=== PATIENT | male | born 1970 | race Caucasian/White ===

== ENCOUNTER 2022-04-05 17:45 | Inpatient (IN) ==
--- NOTE | 2022-04-05 18:04 | ED Triage Note ---
Date of Service April 05, 2022 History of Present Illness This patient was briefly evaluated while in triage. An abbreviated physical exam was performed. This patient is a 51-year-old Male with past medical history of PE, DM, who presents to the ED for evaluation of Left side abdominal pain, fullness of abdom en, dyspnea, and cough. Physical Exam VITALS: Vitals are noted on the nurse's note and reviewed by myself. GENERAL: This is a 51 year old obese white male, in no acute distress, nondiaphoretic, well-developed well-nourished. SKIN: No edema, rash. HEAD: Normocephalic atraumatic. NECK: No lymphadenopathy. Cervical spine is nontender. No JVD. LUNGS: No retractions or accessory muscle use. MUSCULOSKELETAL: Normal gait. NEURO: Patient was alert and oriented to person place and time. No focal neurological deficits. Initial orders for labs and / or imaging were placed and patient was placed in the waiting area until a bed is available. Please see further documentation for the full ED course.
[2022-04-05] MEDS ORDERED: ACETAMINOPHEN 500 MG TAB PO STA (18:16)
[2022-04-05] MEDS ORDERED: SODIUM CHLORIDE 0.9% 500 ML IV ONE (18:16)
--- NOTE | 2022-04-05 18:20 | Emergency Department Note ---
Impression & Plan Acute pancreatitis, Abdominal pain, Fever, Chest pain ED Provider Note NAME: RILEY GONZALEZ AGE: 51 SEX: M : 1970 ARRIVES VIA: Walk-In INFORMANT: Patient, ED PROVIDER(S): Hiro Mendez DO CHIEF COMPLAINT: Abdominal pain HPI: The patient is a 51-year-old male who presented to the emergency department for an evaluation of abdominal pain. The patient states he had abdominal pain over the course the last 2 days. He called his family doctor and had a COVID test run previously. He he recently returned from [place]. He is at a cough. He denies having any chest pain at this time. He denies having any lower extre mity swelling or pain. He notices no rashes. The patient also had a fever. He states pain is worsened with ambulation as well as coughing. He denies having any recent tick bites. The patient states has been compliant with his outpatient medications. He also has a history of diabetes as well as DVT with pulmonary embolism. He came to the emergency department because he was concerned about the possibility of a pulmonary embolism. ROS: See above HPI for pertinent positives & negatives. A total of 10 systems reviewed and were otherwise negative. PAST MEDICAL HISTORY: See Below PAST SURGICAL HISTORY: See Below FAMILY HISTORY: See Below SOCIAL HISTORY: See Below HOME MEDICATIONS: See Below ALLERGIES: See Below VITALS: See Below PHYSICAL EXAMINATION: GENERAL: Patient is awake alert in no acute distress patient is resting comfortably and showing no signs of anxiety EYES: The conjunctivae are clear. The pupils are round and reactive. EARS, NOSE, MOUTH AND THROAT: The nose is without any evidence of any deformity. Mucous membranes are moist. Tongue is midline. NECK: The neck is nontender and supple. RESPIRATORY: Normal respiratory effort is noted there is no evidence of wheezing rhonchi or rales CARDIOVASCULAR: Regular rate and rhythm noted there no murmurs rubs or gallops normal S1 normal S2. GASTROINTESTINAL: Abdomen was distended. There is diffuse tenderness to palpation but no guarding or rigidity. MUSCULOSKELETAL/EXTREMITIES: There is no evidence of gross deformity full range of motion is noted in the hips and shoulders. SKIN: There is no obvious evidence of any rash. There are no petechiae, pallor or cyanosis noted. NEUROLOGIC: Patient is awake alert and oriented x. Gait was steady. MEDICAL DECISION MAKING: The patient is a 51-year-old male who presented to the emergency department for an evaluation of abdominal pain. The patient was found have a fever. He was treated with IV fluids and IV pain medication. He was also treated with IV antibiotics. I discussed the patient's laboratory and radiographic studies with him. At this time his exam appears to be consistent with significant abdominal tenderness. CT appears to be consistent with pancreatitis. The patient was further treated with Protonix as well as Pepcid. I discussed his condition with the on-call [facility] Hospitalist. They have agreed to evaluate the patient in the emergency department for further management and disposition. Triage Nursing notes reviewed. Prior medical records reviewed Vital Signs: reviewed and remarkable for tachycardia and fever. Differential diagnosis: Etiologies such as appendicitis, diverticulitis, obstruction, inflammatory bowel disease, renal colic, PUD, biliary pathology, pancreatitis, mesenteric ischemia, aortic pathology, infections, genitourinary, UTI, perforated viscus, as well as others were entertained. ER treatment provided: See below Diagnostics interpreted by me: ECG: EKG was obtained in the emergency department. My interpretation is sinus tachycardia 124 bpm. PVCs were noted. Nonspecific ST segment abnormalities were noted diffusely. This was compared to a tracing from February 14, 2020. Increased rate otherwise no changes Cardiac Monitoring: An order was placed for continuous cardiac monitoring. The monitor shows a rate of 109 bpm with sinus tachycardia Laboratory studies: As stated above and show below. Imaging studies: See below Consultation(s): I discussed this case with Dr. Ashley who is on-call for the [facility] Hospitalist group. Past Med/Surg History Medical History History of diabetes mellitus, type II History of DVT (deep vein thrombosis) History of DVT (deep vein thrombosis) History of gastroesophageal reflux (GERD) History of hyperlipidemia History of neuropathy History of pulmonary embolism History of pulmonary embolism CECILIO (obstructive sleep apnea) Surgical History History of ankle surgery History of tonsillectomy History of uvulopalatopharyngoplasty Family History Mother Hypertension Melanoma Father Parkinsons disease Brother Deep vein thrombosis Social History Smoking Status: Never smoker Preferred Language: Swedish Feels Safe at Home: Yes Allergies Allergies Allergy/AdvReac Type Severity Reaction Status Date / Time Penicillins Allergy Mild Unknown Unverified 04/05/22 21:21 Home Meds Home Medications Medication Instructions Recorded Confirmed atorvastatin 40 mg tablet 40 mg PO DAILY 02/14/20 04/05/22 lisinopril 20 1 tab PO DAILY 02/14/20 04/05/22 mg-hydrochlorothiazide 25 mg tablet metformin 500 mg tablet 1,000 mg PO BID 02/14/20 04/05/22 thiamine HCl (vitamin B1) 100 mg 100 mg PO DAILY 03/23/20 04/05/22 tablet warfarin 5 mg tablet 5 mg PO TU 03/23/20 04/05/22 fluticasone propionate 50 1 spray INTRANASAL DAILY PRN 03/30/20 04/05/22 mcg/actuation nasal spray,suspension (Flonase Allergy Relief) melatonin 5 mg chewable tablet 5 mg PO HS 06/23/21 04/05/22 warfarin 5 mg tablet 10 mg PO SUMOWETHFRSA 06/23/21 04/05/22 fenofibrate micronized 134 mg 134 mg PO QAM 04/05/22 04/05/22 capsule metoprolol succinate 50 mg 50 mg PO DAILY 04/05/22 04/05/22 tablet,extended release 24 hr molnupiravir 200 mg capsule (EUA) 800 mg PO BID 04/05/22 04/05/22 Results & Data (ED) Vital Signs Vital Signs - 24 hr 04/05/22 18:03 04/05/22 18:24 04/05/22 18:34 Temperature 38.2 C H Temperature Source Oral Pulse Rate 124 H 122 H Pulse Rate [Apical] 121 H Pulse Rhythm Regular Pulse Rhythm [Apical] Pulse Strength Normal Respiratory Rate 20 15 20 Respiratory Effort / Characteristics Non-Labored Spontaneous Non-Labored Respiratory Depth Normal Normal Respiratory Pattern Regular Blood Pressure 132/81 Blood Pressure [Right Arm] 141/95 H Blood Pressure Mean 98 Blood Pressure Mean [Right Arm] 110 Blood Pressure Position Sitting Blood Pressure Position [Right Arm] Lying Pulse Oximetry 95 95 96 Oxygen Delivery Method Room Air Room Air Room Air Sepsis Recent Fever Within 48 Hours Yes Sepsis New/Unexplained Change in Mental Status No Sepsis Action Taken by Nursing Physician Notified 04/05/22 19:19 04/05/22 21:00 Temperature 37.5 C Temperature Source Oral Pulse Rate Pulse Rate [Apical] 114 H 109 H Pulse Rhythm Pulse Rhythm [Apical] Regular Pulse Strength Respiratory Rate 18 20 Respiratory Effort / Characteristics Non-Labored Spontaneous Non-Labored Spontaneous Respiratory Depth Normal Normal Respiratory Pattern Regular Regular Blood Pressure Blood Pressure [Right Arm] 150/92 H 126/77 Blood Pressure Mean Blood Pressure Mean [Right Arm] 111 93 Blood Pressure Position Blood Pressure Position [Right Arm] Sitting Pulse Oximetry 93 94 Oxygen Delivery Method Room Air Room Air Sepsis Recent Fever Within 48 Hours Sepsis New/Unexplained Change in Mental Status Sepsis Action Taken by Half-Way Medications Current Medication List: was personally reviewed by me Laboratory Data Attestation: I reviewed the patient's lab results. Result diagrams: 04/05/22 18:31 04/05/22 18:31 Lab Results 04/05/22 04/05/22 04/05/22 Range/Units 18:31 18:31 19:17 WBC 13.93 H (4.8-10.8) K/ul RBC 5.52 (4.63-6.08) M/uL Hgb 16.2 (14.0-18.0) g/dl Hct 46.2 (40.1-51.0) % MCV 83.7 (80.0-100.0) fL MCH 29.3 (25.0-34.0) pg MCHC 35.1 (32.0-36.0) g/dL RDW Std Deviation 41.5 (36.4-46.3) fL RDW Coeff of Tamanna 13.7 (11.5-14.5) % Plt Count 334 (130-400) K/uL MPV 9.6 (9.4-12.4) fL Immature Gran % (Auto) 0.6 % Neut % (Auto) 77.0 % Lymph % (Auto) 14.4 % [place] % (Auto) 7.5 % Eos % (Auto) 0.1 % Baso % (Auto) 0.4 % Neut # (Auto) 10.75 H (1.4-6.5) K/uL Lymph # (Auto) 2.00 (1.2-3.4) K/uL [place] # (Auto) 1.04 H (0.24-0.82) K/uL Eos # (Auto) 0.01 (0-0.50) K/uL Baso # (Auto) 0.05 (0-0.2) K/uL Immature Gran # (Auto) 0.08 H (0.00-0.02) K/uL Sodium 133 L (136-145) mmol/L Potassium 3.2 L (3.5-5.1) mmol/L Chloride 97 L (98-107) mmol/L Carbon Dioxide 25 (21-32) mmol/L Anion Gap 11 (3-11) BUN 10 (6-23) mg/dl Creatinine 0.81 (0.6-1.4) mg/dl Est Cr Clr Drug Dosing 149.1 ml/min Est GFR ( Amer) 117.6 ml/min Est GFR (Non-Af Amer) 101.5 ml/min BUN/Creatinine Ratio 12.3 (10-20) Glucose 208 H (70-99(Fasting)) mg/dl Calcium 9.1 (8.5-10.1) mg/dl Magnesium 1.9 (1.7-2.4) mg/dl Total Bilirubin 2.1 H (0.2-1.0) mg/dl AST 18 (13-39) U/L ALT 21 (7-52) U/L Alkaline Phosphatase 55 (34-104) U/L Troponin I High Sens 5.8 (0-20) pg/ml Total Protein 7.6 (6.0-8.3) gm/dl Albumin 4.0 (3.4-5.0) gm/dl Globulin 3.6 (2.5-4.0) gm/dl Albumin/Globulin Ratio 1.1 (0.9-2) Lipase 329 H (11-82) U/L Urine Color Dark Yellow Urine Appearance Clear (Clear) Urine pH 7.0 (4.5-7.5) Ur Specific [place] 1.032 H (1.000-1.030) Urine Protein 3+ H (Negative) Urine Glucose (UA) 3+ H (Negative) Urine Ketones 1+ H (Negative) Urine Blood 2+ H (Negative) Urine Nitrite Negative (Negative) Urine Bilirubin Negative (Negative) Urine Urobilinogen Negative (Negative) Ur Leukocyte Esterase Negative (Negative) Urine WBC (Auto) 1-5 (0-5) /hpf Urine RBC (Auto) 10-30 H (0-4) /hpf U Hyaline Cast (Auto) 1-5 (0-5) /lpf U Epithel Cells (Auto) 10-20 H (0-5) /lpf Urine Bacteria (Auto) Negative (Negative) SARS-CoV-2, RNA, NAAT (NEGATIVE) 04/05/22 Range/Units 21:00 WBC (4.8-10.8) K/ul RBC (4.63-6.08) M/uL Hgb (14.0-18.0) g/dl Hct (40.1-51.0) % MCV (80.0-100.0) fL MCH (25.0-34.0) pg MCHC (32.0-36.0) g/dL RDW Std Deviation (36.4-46.3) fL RDW Coeff of Tamanna (11.5-14.5) % Plt Count (130-400) K/uL MPV (9.4-12.4) fL Immature Gran % (Auto) % Neut % (Auto) % Lymph % (Auto) % [place] % (Auto) % Eos % (Auto) % Baso % (Auto) % Neut # (Auto) (1.4-6.5) K/uL Lymph # (Auto) (1.2-3.4) K/uL [place] # (Auto) (0.24-0.82) K/uL Eos # (Auto) (0-0.50) K/uL Baso # (Auto) (0-0.2) K/uL Immature Gran # (Auto) (0.00-0.02) K/uL Sodium (136-145) mmol/L Potassium (3.5-5.1) mmol/L Chloride (98-107) mmol/L Carbon Dioxide (21-32) mmol/L Anion Gap (3-11) BUN (6-23) mg/dl Creatinine (0.6-1.4) mg/dl Est Cr Clr Drug Dosing ml/min Est GFR ( Amer) ml/min Est GFR (Non-Af Amer) ml/min BUN/Creatinine Ratio (10-20) Glucose (70-99(Fasting)) mg/dl Calcium (8.5-10.1) mg/dl Magnesium (1.7-2.4) mg/dl Total Bilirubin (0.2-1.0) mg/dl AST (13-39) U/L ALT (7-52) U/L Alkaline Phosphatase (34-104) U/L Troponin I High Sens (0-20) pg/ml Total Protein (6.0-8.3) gm/dl Albumin (3.4-5.0) gm/dl Globulin (2.5-4.0) gm/dl Albumin/Globulin Ratio (0.9-2) Lipase (11-82) U/L Urine Color Urine Appearance (Clear) Urine pH (4.5-7.5) Ur Specific [place] (1.000-1.030) Urine Protein (Negative) Urine Glucose (UA) (Negative) Urine Ketones (Negative) Urine Blood (Negative) Urine Nitrite (Negative) Urine Bilirubin (Negative) Urine Urobilinogen (Negative) Ur Leukocyte Esterase (Negative) Urine WBC (Auto) (0-5) /hpf Urine RBC (Auto) (0-4) /hpf U Hyaline Cast (Auto) (0-5) /lpf U Epithel Cells (Auto) (0-5) /lpf Urine Bacteria (Auto) (Negative) SARS-CoV-2, RNA, NAAT NEGATIVE (NEGATIVE) Administered Medications Discontinued Medications Acetaminophen (Acetaminophen 500 Mg Tab) 1,000 mg PO NOW STA Stop: 04/05/22 18:17 Last Admin: 04/05/22 18:39 Dose: 1,000 mg Documented by: [id number] Sodium Chloride (Nss) 500 mls @ 999 mls/hr IV .Q31M ONE Stop: 04/05/22 18:46 Last Infusion: 04/05/22 19:08 Dose: 0 mls/hr Documented by: [id number] Admin: 04/05/22 18:37 Dose: 999 mls/hr Documented by: [id number] Cefoxitin Sodium (Mefoxin) 2,000 mg in 60 mls @ 100 mls/hr IV NOW STA Stop: 04/05/22 20:42 Last Infusion: 04/05/22 21:34 Dose: 0 mls/hr Documented by: [id number] Admin: 04/05/22 20:58 Dose: 100 mls/hr Documented by: [id number] Sodium Chloride (Nss 1000ml) 1,000 mls @ 999 mls/hr IV .Q1H1M ONE Stop: 04/05/22 21:07 Last Admin: 04/05/22 20:59 Dose: 999 mls/hr Documented by: [id number] Pantoprazole Sodium 40 mg/ (Syringe) 10 mls @ 5 mls/min IV NOW ONE Stop: 04/05/22 20:20 Last Admin: 04/05/22 20:58 Dose: 5 mls/min Documented by: [id number] Famotidine (Pepcid 20mg Iv Push) 20 mg in 5 mls @ 2.5 mls/min IV NOW STA Stop: 04/05/22 20:20 Last Admin: 04/05/22 20:58 Dose: 2.5 mls/min Documented by: [id number] Ioversol (Optiray 320 100ml) 120 ml IV ONCE ONE Stop: 04/05/22 19:32 Last Admin: 04/05/22 19:31 Dose: 120 ml Documented by: [id number] Imaging Data Radiologist's Impression: Abdomen/Pelvis CT 04/05/22 18:03 CT OF THE ABDOMEN AND PELVIS WITH CONTRAST CLINICAL HISTORY: Left sided abdominal pain. COMPARISON STUDY: CTA of the abdomen and pelvis June 23, 2021. TECHNIQUE: Following IV administration of 120 mL of Optiray, axial images of the abdomen and pelvis were obtained from the lung bases to the proximal femurs. Images were reviewed in the axial, sagittal, and coronal planes. IV contrast was administered without complication. Automated exposure control was utilized for the study. A dose lowering technique was utilized adhering to the principles of ALARA. FINDINGS: No pneumatosis, free air or portal venous gas is present. There is hepatic steatosis. There is no biliary or pancreatic ductal dilatation. Note is made of moderate fluid centered on the pancreatic body and tail which extends into the mesentery and left anterior pararenal space. No peripancreatic fluid collection is present. There is no evidence for pancreatic necrosis. Major vasculature is patent. Spleen, adrenal glands and kidneys are unremarkable. The re is no hydronephrosis. Colon is fluid-filled. No evidence for a bowel obstruction. Sigmoid diverticulosis is noted without evidence for acute diverticulitis. Prostate is enlarged, measuring 5.3 cm in transverse dimension. Small fat-containing umbilical hernia is present. There are small bilateral fat- containing inguinal hernias. IMPRESSION: 1. Findings consistent with acute pancreatitis. Moderate peripancreatic fluid extending into the mesentery and left anterior pararenal space. No peripancreatic fluid collection. No evidence for gland necrosis. 2. Hepatic steatosis. ACT 112: Negative or not required by law. Electronically signed by: Rodrigo iNcole M.D. 04/05/2022 8:05 PM Chest CTA 04/05/22 18:04 CT ANGIOGRAPHY OF THE CHEST, PULMONARY EMBOLUS PROTOCOL CLINICAL HISTORY: Abdominal pain, shortness of breath, hx. PE COMPARISON STUDY: Chest CT June 23, 2021. TECHNIQUE: Following IV administration of 120 mL of Optiray, helical axial im ages of the chest were obtained utilizing the pulmonary embolus protocol. Maximal intensity projections and sagittal and coronal reformats were viewed on an independent 3D workstation. IV contrast was administered without complication. Automated exposure control was utilized for the study. A dose lowering technique was utilized adhering to the principles of ALARA. CT DOSE: 2744.82 mGy.cm FINDINGS: No pulmonary emboli are identified although this exam is compromised by respiratory motion. There is no thoracic aortic dissection. Size of the heart is normal. There is no pericardial effusion. Moderate coronary artery calcification is present. No consolidation to suggest pneumonia. There is no pneumothorax or pleural effusion. Abdomen and pelvis CT will be reported separately. Hepatic steatosis in findings consistent with acute pancreatitis are better depicted on that exam IMPRESSION: 1. No pulmonary emboli identified although exam mildly compromised by respiratory motion. 2. No acute process within the chest. 3. Findings consistent with acute pancreatitis, better depicted on the CT of the abdomen and pelvis which will be reported separately. ACT 112: Negative or not required by law. Electronically signed by: Rodrigo Nicole M.D. 04/05/2022 7:55 PM Discharge Plan Visit Data Chief Complaint: Abdominal Pain Stated Complaint: ABDOMINAL PAIN. COVID POSITIVE ED Provider: Hiro Mendez Discharge Problem: Acute pancreatitis, Abdominal pain, Fever, Chest pain Patient Disposition: Being Evaluated by Hospitalist Forms Stand Alone Forms: My [facility] [place] [employer] Prescriptions Prescriptions: No Action warfarin 5 mg tablet 5 mg PO TU RF: 0 thiamine HCl (vitamin B1) 100 mg tablet 100 mg PO DAILY RF: 0 atorvastatin 40 mg tablet 40 mg PO DAILY RF: 0 metformin 500 mg tablet 1,000 mg PO BID RF: 0 lisinopril-hydrochlorothiazide 20-25 mg tablet 1 tab PO DAILY RF: 0 fluticasone propionate [Flonase Allergy Relief] 50 mcg/actuation spray,susp ension 1 spray INTRANASAL DAILY PRN (Reason: allergies) RF: 0 warfarin 5 mg tablet 10 mg PO SUMOWETHFRSA RF: 0 melatonin 5 mg Tablet,Chewable 5 mg PO HS RF: 0 metoprolol succinate 50 mg tablet extended release 24 hr 50 mg PO DAILY RF: 0 fenofibrate micronized 134 mg capsule 134 mg PO QAM RF: 0 molnupiravir 200 mg capsule 800 mg PO BID RF: 0 Referrals Referrals: Iain Barrientos MD [Primary Care Provider] -
[2022-04-05 18:44] LABS: Basophils # (auto) 0.05 K/uL (0-0.2); Basophils % (auto) 0.4 %; Eosinophils # (auto) 0.01 K/uL (0-0.50); Eosinophils % (auto) 0.1 %; Hematocrit (blood only) 46.2 % (40.1-51.0); Hemoglobin 16.2 g/dl (14.0-18.0); Immature Granulocytes # (auto) 0.08 K/uL (0.00-0.02); Immature Granulocytes % (auto) 0.6 %; Lymphocytes % (auto) 14.4 %; Mean Corpuscular Hemoglobin 29.3 pg (25.0-34.0); Mean Corpuscular Hgb Conc 35.1 g/dL (32.0-36.0); Mean Corpuscular Volume 83.7 fL (80.0-100.0); Mean Platelet Volume 9.6 fL (9.4-12.4); Monocytes # (auto) 1.04 K/uL (0.24-0.82); Monocytes % (auto) 7.5 %; Neutrophils # (auto) 10.75 K/uL (1.4-6.5); Platelet Count 334 K/uL (130-400); RDW Coefficient of Variation 13.7 % (11.5-14.5); RDW Standard Deviation 41.5 fL (36.4-46.3); Red Blood Count 5.52 M/uL (4.63-6.08); White Blood Count 13.93 K/ul (4.8-10.8)
[2022-04-05 19:12] LABS: Albumin Globulin Ratio 1.1 (0.9-2); BUN Creatinine Ratio 12.3 (10-20); Bilirubin,Total 2.1 mg/dl (0.2-1.0); Calcium 9.1 mg/dl (8.5-10.1); Creatinine Clr Calc Pharmacy 149.1 ml/min; Est GFR (African American) 117.6 ml/min; Est GFR (Non-African American) 101.5 ml/min; Globulin 3.6 gm/dl (2.5-4.0); Potassium 3.2 mmol/L (3.5-5.1); Total Protein 7.6 gm/dl (6.0-8.3)
[2022-04-05 19:16] LABS: Troponin I High Sensitivity 5.8 pg/ml (0-20)
[2022-04-05] MEDS ORDERED: OPTIRAY 320 100ml IV ONE (19:31)
[2022-04-05 19:32] LABS: Appearance Urine Clear (Clear); Bacteria Urine Automated Negative (Negative); Bilirubin Urine Negative (Negative); Blood Urine 2+ (Negative); Color Urine Dark Yellow; Glucose Urine UA 3+ (Negative); Ketones Urine 1+ (Negative); Leukocyte Esterase Urine Negative (Negative); Nitrite Urine Negative (Negative); Protein Urine 3+ (Negative); Specific Gravity Urine 1.032 (1.000-1.030); Urobilinogen Urine Negative (Negative)
--- NOTE | 2022-04-05 19:57 | CT Scan Report ---
CT ANGIOGRAPHY OF THE CHEST, PULMONARY EMBOLUS PROTOCOL CLINICAL HISTORY: Abdominal pain, shortness of breath, hx. PE COMPARISON STUDY: Chest CT June 23, 2021. TECHNIQUE: Following IV administration of 120 mL of Optiray, helical axial images of the chest were o btained utilizing the pulmonary embolus protocol. Maximal intensity projections and sagittal and cor onal reformats were viewed on an independent 3D workstation. IV contrast was administered without co mplication. Automated exposure control was utilized for the study. A dose lowering technique was ut ilized adhering to the principles of ALARA. CT DOSE: 2744.82 mGy.cm FINDINGS: No pulmonary emboli are identified although this exam is compromised by respiratory motion . There is no thoracic aortic dissection. Size of the heart is normal. There is no pericardial effusi on. Moderate coronary artery calcification is present. No consolidation to suggest pneumonia. There i s no pneumothorax or pleural effusion. Abdomen and pelvis CT will be reported separately. Hepatic germán atosis in findings consistent with acute pancreatitis are better depicted on that exam IMPRESSION: 1. No pulmonary emboli identified although exam mildly compromised by respiratory motion. 2. No acute process within the chest. 3. Findings consistent with acute pancreatitis, better depicted on the CT of the abdomen and pelvis w hich will be reported separately. ACT 112: Negative or not required by law. Electronically signed by: Rodrigo Nicole M.D. 04/05/2022 7:55 PM
[2022-04-05] MEDS ORDERED: cefOXitin 2,000 MG/60 ML BAG IV STA (20:07)
[2022-04-05] MEDS ORDERED: SODIUM CHLORIDE 0.9% 1000ML 1,000 ML IV ONE (20:07)
--- NOTE | 2022-04-05 20:07 | CT Scan Report ---
CT OF THE ABDOMEN AND PELVIS WITH CONTRAST CLINICAL HISTORY: Left sided abdominal pain. COMPARISON STUDY: CTA of the abdomen and pelvis June 23, 2021. TECHNIQUE: Following IV administration of 120 mL of Optiray, axial images of the abdomen and pelvis w ere obtained from the lung bases to the proximal femurs. Images were reviewed in the axial, sagittal, and coronal planes. IV contrast was administered without complication. Automated exposure control w as utilized for the study. A dose lowering technique was utilized adhering to the principles of BETTY Gonzales. FINDINGS: No pneumatosis, free air or portal venous gas is present. There is hepatic steatosis. There is no biliary or pancreatic ductal dilatation. Note is made of moderate fluid centered on the pancre atic body and tail which extends into the mesentery and left anterior pararenal space. No peripancrea tic fluid collection is present. There is no evidence for pancreatic necrosis. Major vasculature is p atent. Spleen, adrenal glands and kidneys are unremarkable. There is no hydronephrosis. Colon is flui d-filled. No evidence for a bowel obstruction. Sigmoid diverticulosis is noted without evidence for a cute diverticulitis. Prostate is enlarged, measuring 5.3 cm in transverse dimension. Small fat-contai marcus umbilical hernia is present. There are small bilateral fat-containing inguinal hernias. IMPRESSION: 1. Findings consistent with acute pancreatitis. Moderate peripancreatic fluid extending into the mese ntery and left anterior pararenal space. No peripancreatic fluid collection. No evidence for gland ne crosis. 2. Hepatic steatosis. ACT 112: Negative or not required by law. Electronically signed by: Rodrigo Nicole M.D. 04/05/2022 8:05 PM
[2022-04-05] MEDS ORDERED: FAMOTIDINE 20MG IV PUSH 20 MG/5 ML SYR IV STA (20:19)
[2022-04-05] MEDS ORDERED: PANTOprazole 40 MG in SYRINGE 0 ML IV ONE (20:19)
[2022-04-05] MEDS ORDERED: POTASSIUM CHLORIDE CRTAB 20 MEQ TABCR PO STA (21:06)
--- NOTE | 2022-04-05 21:13 | History & Physical Report ---
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, INR supratherapeutic hypertension, stable hyperlipidemia on statin rx CECILIO sp surgery on CPAP DM2 on oral medications, suboptimal control as of recent hemoglobin A1c of 7.08 March 2021 Hypokalemia secondary to diarrhea and home diuretic Rx Medical telemetry given tachycardia N.p.o., bowel rest, IVF, analgesia Gallbladder ultrasound GI consult Re: Pancreatitis May need surgical evaluation inpatient if gallbladder ultrasound shows gallstones COVID-19 precautions (despite negative ER test) as patient still within 3 weeks of onset of symptoms Complete antiviral course Basal insulin adjusted for n.p.o. status, ISS BG goal 1 10-1 40, update hemoglobin A1c Replace potassium, hold home diuretic for now while patient n.p.o. DVT prophylaxis. Coumadin INR goal between 2 and 3 if no procedural intervention Full code Text document was generated using [employer] voice recognition software. It may contain grammatical or spelling errors. Kindly contact undersigned for clarification of any documentation item in question. History of Present Illness Chief Complaint: Abdominal pain Primary Care Provider: Iain Barrientos MD History obtained from patient and records. Medical history significant for saddle PE on Coumadin, hypertension, hyperlipidemia, BPH, migraine, CECILIO sp surgery on CPAP, GERD, DM2 on oral medications. Last confinement 2017 for saddle PE with RV strain and new diagnosis of DM2. [place] [facility] [place]. Subsequently transition to Coumadin. Patient was on vacation with his family in [place] when he noted cough symptoms about 2 weeks ago (03/24/22), some improvement with OTC meds. Not sure about COVID-19 contacts. No COVID 19 testing done in [place]. Patient received COVID-19 vaccination. Last week upon return to [place], patient tested positive on his home COVID-19 kit. Patient prescribed Molnuripivir course. Achy central abdominal pain with nausea symptoms and constipation followed by loose stools nonbloody after laxative intake even before first dose of antiviral. No fever, no chills, no chest pain, no shortness of breath. Some nausea, no emesis. Patient consulted ER for worsening symptoms. MEDICAL HISTORY: As above. 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 Allergies Allergy/AdvReac Type Severity Reaction Status Date / Time Penicillins Allergy Mild Unknown Unverified 04/05/22 21:21 Home Medications Medication Instructions Recorded Confirmed Type atorvastatin 40 mg tablet 40 mg PO DAILY 02/14/20 04/05/22 History lisinopril 20 1 tab PO DAILY 02/14/20 04/05/22 History mg-hydrochlorothiazide 25 mg tablet metformin 500 mg tablet 1,000 mg PO BID 02/14/20 04/05/22 History thiamine HCl (vitamin B1) 100 mg 100 mg PO DAILY 03/23/20 04/05/22 History tablet warfarin 5 mg tablet 5 mg PO TU 03/23/20 04/05/22 History fluticasone propionate 50 1 spray INTRANASAL DAILY PRN 03/30/20 04/05/22 History mcg/actuation nasal spray,suspension (Flonase Allergy Relief) melatonin 5 mg chewable tablet 5 mg PO HS 06/23/21 04/05/22 History [facility] 04/05/22 History fenofibrate micronized 134 mg 134 mg PO QAM 04/05/22 04/05/22 History capsule metoprolol succinate 50 mg 50 mg PO DAILY 04/05/22 04/05/22 History tablet,extended release 24 hr molnupiravir 200 mg capsule (EUA) 800 mg PO BID 04/05/22 04/05/22 History Past Med/Surg History Medical History History of diabetes mellitus, type II History of DVT (deep vein thrombosis) History of DVT (deep vein thrombosis) History of gastroesophageal reflux (GERD) History of hyperlipidemia History of neuropathy History of pulmonary embolism History of pulmonary embolism CECILIO (obstructive sleep apnea) Surgical History History of ankle surgery History of tonsillectomy History of uvulopalatopharyngoplasty Family History Mother Hypertension Melanoma Father Parkinsons disease Brother Deep vein thrombosis Social History Smoking Status: Never smoker Hx Alcohol Use: Yes Alcohol type: beer, wine and hard liquor Hx Substance Use: No Preferred Language: Macanese Communication Ability: Effective Personal Attendant Required: No Beliefs That Will Affect Care: None Current Living Situation: Spouse Other Information That Helps Us Care for You: No Feels Safe at Home: Yes Safety Concerns: Feels Safe At This Time Assistive Devices: CPAP Review of Systems Review of Systems: As per HPI, all other systems reviewed and negative Physical Exam Physical Exam: GENERAL: Comfortable, pleasant morbidly obese, no respiratory distress SKIN: Normal color, warm HEENT: [place] palpebral conjunctivae, no ptosis, dry buccal mucosa NECK : Supple, neck, no tenderness CHEST : CTA, no tenderness HEART : Tachycardic, no obvious murmurs ABDOMEN: Some distention, central abdominal tenderness EXTREMITIES : Minimal LE swelling, no LE tenderness, no other conspicuous deformities noted NEUROLOGIC : Coherent, no facial asymmetry, no other gross focality Results & Data Results & Data ([facility]) Vital Signs (Past 12 Hours) Vital Signs Temp Pulse Pulse Resp BP BP Pulse Ox 04/05/22 21:00 109 H 20 126/77 94 04/05/22 19:19 37.5 C 114 H 18 150/92 H 93 04/05/22 18:34 121 H 20 141/95 H 96 04/05/22 18:24 122 H 15 95 04/05/22 18:03 38.2 C H 124 H 20 132/81 95 Laboratory Results Laboratory Results WBC 13.93 K/ul (4.8-10.8) H 04/05/22 18:31 RBC 5.52 M/uL (4.63-6.08) 04/05/22 18:31 Hgb 16.2 g/dl (14.0-18.0) 04/05/22 18:31 Hct 46.2 % (40.1-51.0) 04/05/22 18:31 MCV 83.7 fL (80.0-100.0) 04/05/22 18:31 MCH 29.3 pg (25.0-34.0) 04/05/22 18: MCHC 35.1 g/dL (32.0-36.0) 04/05/22 18: RDW Std Deviation 41.5 fL (36.4-46.3) 04/05/22 18: RDW Coeff of Tamanna 13.7 % (11.5-14.5) 04/05/22 18: Plt Count 334 K/uL (130-400) 04/05/22 18: MPV 9.6 fL (9.4-12.4) 04/05/22 18: Immature Gran % (Auto) 0.6 % 04/05/22 18: Neut % (Auto) 77.0 % 04/05/22 18: Lymph % (Auto) 14.4 % 04/05/22 18: [place] % (Auto) 7.5 % 04/05/22 18: Eos % (Auto) 0.1 % 04/05/22 18: Baso % (Auto) 0.4 % 04/05/22 18: Neut # (Auto) 10.75 K/uL (1.4-6.5) H 04/05/22 18: Lymph # (Auto) 2.00 K/uL (1.2-3.4) 04/05/22 18: [place] # (Auto) 1.04 K/uL (0.24-0.82) H 04/05/22 18: Eos # (Auto) 0.01 K/uL (0-0.50) 04/05/22 18: Baso # (Auto) 0.05 K/uL (0-0.2) 04/05/22 18: Immature Gran # (Auto) 0.08 K/uL (0.00-0.02) H 04/05/22 18: Sodium 133 mmol/L (136-145) L 04/05/22 18: Potassium 3.2 mmol/L (3.5-5.1) L 04/05/22 18: Chloride 97 mmol/L (98-107) L 04/05/22 18: Carbon Dioxide 25 mmol/L (21-32) 04/05/22 18: Anion Gap 11 (3-11) 04/05/22 18:31 BUN 10 mg/dl (6-23) 04/05/22 18:31 Creatinine 0.81 mg/dl (0.6-1.4) 04/05/22 18:31 Est Cr Clr Drug Dosing 149.1 ml/min 04/05/22 18:31 Est GFR ( Amer) 117.6 ml/min 04/05/22 18:31 Est GFR (Non-Af Amer) 101.5 ml/min 04/05/22 18:31 BUN/Creatinine Ratio 12.3 (10-20) 04/05/22 18:31 Glucose 208 mg/dl (70-99(Fasting)) H 04/05/22 18:31 Calcium 9.1 mg/dl (8.5-10.1) 04/05/22 18: Total Bilirubin 2.1 mg/dl (0.2-1.0) H 04/05/22 18:31 AST 18 U/L (13-39) 04/05/22 18:31 ALT 21 U/L (7-52) 04/05/22 18:31 Alkaline Phosphatase 55 U/L (34-104) 04/05/22 18:31 Troponin I High Sens 5.8 pg/ml (0-20) 04/05/22 18:31 Total Protein 7.6 gm/dl (6.0-8.3) 04/05/22 18:31 Albumin 4.0 gm/dl (3.4-5.0) 04/05/22 18:31 Globulin 3.6 gm/dl (2.5-4.0) 04/05/22 18:31 Albumin/Globulin Ratio 1.1 (0.9-2) 04/05/22 18:31 Lipase 329 U/L (11-82) H 04/05/22 18:31 Urine Color Dark Yellow 04/05/22 19:17 Urine Appearance Clear (Clear) 04/05/22 19:17 Urine pH 7.0 (4.5-7.5) 04/05/22 19:17 Ur Specific [place] 1.032 (1.000-1.030) H 04/05/22 19:17 Urine Protein 3+ (Negative) H 04/05/22 19:17 Urine Glucose (UA) 3+ (Negative) H 04/05/22 19:17 Urine Ketones 1+ (Negative) H 04/05/22 19:17 Urine Blood 2+ (Negative) H 04/05/22 19:17 Urine Nitrite Negative (Negative) 04/05/22 19:17 Urine Bilirubin Negative (Negative) 04/05/22 19:17 Urine Urobilinogen Negative (Negative) 04/05/22 19:17 Ur Leukocyte Esterase Negative (Negative) 04/05/22 19:17 Urine WBC (Auto) 1-5 /hpf (0-5) 04/05/22 19:17 Urine RBC (Auto) 10-30 /hpf (0-4) H 04/05/22 19:17 U Hyaline Cast (Auto) 1-5 /lpf (0-5) 04/05/22 19:17 U Epithel Cells (Auto) 10-20 /lpf (0-5) H 04/05/22 19:17 Urine Bacteria (Auto) Negative (Negative) 04/05/22 19:17 Impressions Abdomen/Pelvis CT 04/05/22 18:03 CT OF THE ABDOMEN AND PELVIS WITH CONTRAST CLINICAL HISTORY: Left sided abdominal pain. COMPARISON STUDY: CTA of the abdomen and pelvis June 23, 2021. TECHNIQUE: Following IV administration of 120 mL of Optiray, axial images of the abdomen and pelvis were obtained from the lung bases to the proximal femurs. Images were reviewed in the axial, sagittal, and coronal planes. IV contrast was administered without complication. Automated exposure control was utilized for the study. A dose lowering technique was utilized adhering to the principles of ALARA. FINDINGS: No pneumatosis, free air or portal venous gas is present. There is hepatic steatosis. There is no biliary or pancreatic ductal dilatation. Note is made of moderate fluid centered on the pancreatic body and tail which extends into the mesentery and left anterior pararenal space. No peripancreatic fluid collection is present. There is no evidence for pancreatic necrosis. Major vasculature is patent. Spleen, adrenal glands and kidneys are unremarkable. There is no hydronephrosis. Colon is fluid-filled. No evidence for a bowel obstruction. Sigmoid diverticulosis is noted without evidence for acute diverticulitis. Prostate is enlarged, measuring 5.3 cm in transverse dimension. Small fat-containing umbilical hernia is present. There are small bilateral fat- containing inguinal hernias. IMPRESSION: 1. Findings consistent with acute pancreatitis. Moderate peripancreatic fluid extending into the mesentery and left anterior pararenal space. No peripancreatic fluid collection. No evidence for gland necrosis. 2. Hepatic steatosis. ACT 112: Negative or not required by law. Electronically signed by: Rodrigo Nicole M.D. 04/05/2022 8:05 PM Chest CTA 04/05/22 18:04 CT ANGIOGRAPHY OF THE CHEST, PULMONARY EMBOLUS PROTOCOL CLINICAL HISTORY: Abdominal pain, shortness of breath, hx. PE COMPARISON STUDY: Chest CT June 23, 2021. TECHNIQUE: Following IV administration of 120 mL of Optiray, helical axial images of the chest were obtained utilizing the pulmonary embolus protocol. Maximal intensity projections and sagittal and coronal reformats were viewed on an independent 3D workstation. IV contrast was administered without complication. Automated exposure control was utilized for the study. A dose lowering technique was utilized adhering to the principles of ALARA. CT DOSE: 2744.82 mGy.cm FINDINGS: No pulmonary emboli are identified although this exam is compromised by respiratory motion. There is no thoracic aortic dissection. Size of the heart is normal. There is no pericardial effusion. Moderate coronary artery calcification is present. No consolidation to suggest pneumonia. There is no pneumothorax or pleural effusion. Abdomen and pelvis CT will be reported separately. Hepatic steatosis in findings consistent with acute pancreatitis are better depicted on that exam IMPRESSION: 1. No pulmonary emboli identified although exam mildly compromised by respiratory motion. 2. No acute process within the chest. 3. Findings consistent with acute pancreatitis, better depicted on the CT of the abdomen and pelvis which will be reported separately. ACT 112: Negative or not required by law. Electronically signed by: Rodrigo Nicole M.D. 04/05/2022 7:55 PM Diagnostic Findings EKG as per my interpretation: Rate 125, sinus tachycardia, LAD, LAFB, T wave abnormality septal leads, PVCs (1) Acute pancreatitis Acute pancreatitis complication: unspecified Pancreatitis type: unspecified pancreatitis type Qualified Code(s): K85.90 - Acute pancreatitis without necrosis or infection, unspecified
[2022-04-05] MEDS ORDERED: LACTATED RINGER'S 1,000 ML IV ONE (21:20)
[2022-04-05 21:29] LABS: Magnesium 1.9 mg/dl (1.7-2.4)
[2022-04-05 22:22] LABS: INR 4.3 (0.9-1.1); Prothrombin Time 42.4 Seconds (9.0-12.0)
[2022-04-05] MEDS ORDERED: MAGNESIUM SULFATE / D5W 1 GM/100 ML BAG IV ONE (22:24)
[2022-04-05 22:37] LABS: Partial Thromboplastin Ratio 1.9
[2022-04-05 23:07] LABS: Partial Thromboplastin Time 51.8 Seconds (21.0-31.0)
[2022-04-06] MEDS ORDERED: FLUTICASONE PROPIONATE NA SPR 16 GM BTL PRN (01:11)
[2022-04-06] MEDS ORDERED: POTASSIUM CHLORIDE CRTAB 20 MEQ TABCR PO ONE (01:11)
[2022-04-06] MEDS: PROMETHAZINE HCL 12.5 MG in SODIUM CHLORIDE 0.9% 50 ML IV PRN ×2 (01:59→22:14)
[2022-04-06] MEDS: MoRPHine SULFATE 4 MG/ML 1 ML CARP\\VIAL IV PRN ×5 (02:00→21:59)
[2022-04-06] MEDS: LANTUS PER UNIT CHARGE SQ SCH ×2 (02:31→20:40)
[2022-04-06] MEDS ORDERED: GLUCOSE 40% GEL 15 GM TUBE PO PRN (02:47)
[2022-04-06] MEDS ORDERED: GLUCOSE 10 TAB/TUBE PO PRN (02:47)
[2022-04-06] MEDS ORDERED: DEXTROSE 50% 50 ML SYRINGE IV PRN (02:47)
[2022-04-06] MEDS ORDERED: CARBOHYDRATES FOR HYPOGLYCEMIA PO PRN (02:47)
[2022-04-06] MEDS ORDERED: GLUCAGON FOR INJ 1 MG VIAL SQ PRN (02:47)
[2022-04-06] MEDS: LACTATED RINGER'S 1,000 ML IV SCH ×4 (04:01→20:45)
[2022-04-06] MEDS: INSULIN ASPART PER UNIT SC SCH ×4 (04:07→18:40)
[2022-04-06 07:32] LABS: Estimated Average Glucose 212 mg/dl
--- NOTE | 2022-04-06 07:51 | Ultrasound Report ---
ABDOMINAL ULTRASOUND, RIGHT UPPER QUADRANT HISTORY: Generalized abdominal pain.. COMPARISON: None. FINDINGS: Pancreas: Not visualized due to the overlying bowel gas and the patient's body habitus. Liver: The liver is echogenic consistent with fatty change. 21 cm in length. Gallbladder: No gallbladder wall thickening. No gallstones. CBD: Not visualized. Right kidney: No hydronephrosis. IMPRESSION: 1. Hepatomegaly demonstrating fatty change. 2. Normal gallbladder. No gallstones. 2. The pancreas and common bile duct were not visualized. ACT 112: Negative or not required by law. Electronically signed by: Kunal Bright M.D. 04/06/2022 7:50 AM
[2022-04-06] MEDS: FENOFIBRATE NANOCRYSTALLIZED 145 MG TABLET PO SCH (08:01)
[2022-04-06] MEDS: THIAMINE HCL 100 MG TAB PO SCH (08:01)
[2022-04-06] MEDS: lisinopril 20 MG TAB PO SCH (08:01)
[2022-04-06 08:06] LABS: INR 2.9 (0.9-1.1); Prothrombin Time 28.7 Seconds (9.0-12.0)
[2022-04-06 08:11] LABS: Albumin Globulin Ratio 1.1 (0.9-2); Albumin Level 3.6 gm/dl (3.4-5.0); BUN Creatinine Ratio 13.5 (10-20); Calcium 8.4 mg/dl (8.5-10.1); Creatinine Clr Calc Pharmacy 163.9 ml/min; Est GFR (African American) 122.1 ml/min; Est GFR (Non-African American) 105.3 ml/min; Globulin 3.2 gm/dl (2.5-4.0); Potassium 3.7 mmol/L (3.5-5.1); Total Protein 6.8 gm/dl (6.0-8.3)
[2022-04-06 08:24] LABS: Hematocrit (blood only) 44.3 % (40.1-51.0); Hemoglobin 14.9 g/dl (14.0-18.0); Mean Corpuscular Hemoglobin 29.6 pg (25.0-34.0); Mean Corpuscular Hgb Conc 33.6 g/dL (32.0-36.0); Mean Corpuscular Volume 87.9 fL (80.0-100.0); Mean Platelet Volume 9.8 fL (9.4-12.4); Platelet Count 304 K/uL (130-400); RDW Coefficient of Variation 13.8 % (11.5-14.5); RDW Standard Deviation 44.2 fL (36.4-46.3); Red Blood Count 5.04 M/uL (4.63-6.08)
[2022-04-06 08:26] LABS: Basophils # (auto) 0.05 K/uL (0-0.2); Basophils % (auto) 0.3 %; Eosinophils # (auto) 0.04 K/uL (0-0.50); Eosinophils % (auto) 0.3 %; Immature Granulocytes # (auto) 0.07 K/uL (0.00-0.02); Immature Granulocytes % (auto) 0.5 %; Lymphocytes # (auto) 1.89 K/uL (1.2-3.4); Lymphocytes % (auto) 13.2 %; Monocytes # (auto) 1.21 K/uL (0.24-0.82); Monocytes % (auto) 8.5 %; Neutrophils # (auto) 11.04 K/uL (1.4-6.5); Neutrophils % (auto) 77.2 %
--- NOTE | 2022-04-06 08:30 | Gastrointestinal Consultation ---
Date of Consultation April 06, 2022 Assessment & Plan (1) Acute pancreatitis: (2) Abdominal pain: This is a 51 y/o male w/ multiple co-morbidities, admitted w/ abd pain and found to have what appears to be mild pancreatitis (biochemically and on imaging). Etiology not completely clear; had recent COVID infection; has elevated triglycerides which are risk factors. No biliary stone seen on initial imaging and he is not a regular user of ETOH. Tbili elevated at 2; dbili only minimally elevated 0.3 w/ normal LFTs. On exam abd soft, mod TTP upper abd; he is resting comfortably in bed, afebrile, VSS. - MRCP as ordered by hospitalist - If stone seen, will address based off results. If no stone, consider OP EUS once acute symptoms resolve to evaluate for occult stone, pancreatic anatomical variants or other pathology - Continue IVF, HGB has dropped 2 pts appropriately w/ hydration - Analgesia PRN - NPO - Ambulate as able - Aim to improve high triglycerides Thank you for allowing us to participate in the care of this patient. Please call with any acute changes, questions or concerns. Please see addendum below with additional recommendation from my supervising physician. Supervising Physician Co-Signing Physician Notes I saw and evaluated the patient. We were consulted for evaluation of mild abdominal discomfort and imaging findings consistent with acute pancreatitis. Of note the patient did have a history of COVID March during a trip to [place]. The patient did test negative for the viral infection upon admission. The patient reports no new changes in medications or use of supplements. Physical examination No obvious distress, no scleral icterus, mild right upper quadrant tenderness noted Impression: Patient admitted with mild pancreatitis seems to be resolving with conservative measures. Given the negative imaging studies we would recommend outpatient endoscopic ultrasound to evaluate for occult causes of pancreatitis such as Marii lithiasis or perhaps even pancreatic masses. Would recommend continued IV hydration and advancing diet once the patient is pain-free. Please call with any questions or concerns History of Present Illness Reason for Consultation: pancreatitis Requesting Physician: Dr. 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 Assoc w/ decreased appetite and loose nonbloody stools. Tested + for COVID last week; had symptoms late March. He was rx'd Molnuripivir course. COVID neg on arrival but he is on isolation precautions given recent hx. On arrival, lipase 329, tbili 2.1, normal LFTs, mild leukocytosis, HGB 16 (->14 now). CT findings c/w acute pancreatitis (no peripancreatic fluid collection or necrosis). GB US: Pancreas and CBD not seen, normal GB; no stones. MRCP has been ordered. Has h/o HLD - trigs >500 last month. No BM today. Not passing a lot of flatus. States pain is somewhat improved; notices it more with movement. Was on a trip to [place] prior to symptoms starting. Denies fever, no chills, no chest pain, cough, no shortness of breath. Some nausea, no emesis. No jaundice, dark urine, salgado stools, melena, hematochezia. Has rare ETOH; maybe a sip of beer a month. No tobacco. Denies new medicines recently. No fam hx or personal hx pancreatitis. Allergies Allergy/AdvReac Type Severity Reaction Status Date / Time Penicillins Allergy Mild Unknown Unverified 04/05/22 21:21 Home Medications Medication Instructions Recorded Confirmed Type atorvastatin 40 mg tablet 40 mg PO DAILY 02/14/20 04/05/22 History lisinopril 20 1 tab PO DAILY 02/14/20 04/05/22 History mg-hydrochlorothiazide 25 mg tablet metformin 500 mg tablet 1,000 mg PO BID 02/14/20 04/05/22 History thiamine HCl (vitamin B1) 100 mg 100 mg PO DAILY 03/23/20 04/05/22 History tablet warfarin 5 mg tablet 5 mg PO 03/23/20 04/05/22 History fluticasone propionate 50 1 spray INTRANASAL DAILY PRN 03/30/20 04/05/22 History mcg/actuation nasal spray,suspension (Flonase Allergy Relief) melatonin 5 mg chewable tablet 5 mg PO HS 06/23/21 04/05/22 History warfarin 5 mg tablet 10 mg PO SUMOWETHFRSA 06/23/21 04/05/22 History fenofibrate micronized 134 mg 134 mg PO QAM 04/05/22 04/05/22 History capsule metoprolol succinate 50 mg 50 mg PO DAILY 04/05/22 04/05/22 History tablet,extended release 24 hr molnupiravir 200 mg capsule (EUA) 800 mg PO BID 04/05/22 04/05/22 History Patient History Medical History History of diabetes mellitus, type II History of DVT (deep vein thrombosis) History of DVT (deep vein thrombosis) History of gastroesophageal reflux (GERD) History of hyperlipidemia History of neuropathy History of pulmonary embolism History of pulmonary embolism CECILIO (obstructive sleep apnea) Surgical History History of ankle surgery History of tonsillectomy History of uvulopalatopharyngoplasty Family History Mother Hypertension Melanoma Father Parkinsons disease Brother Deep vein thrombosis Social History Smoking Status: Never smoker Hx Alcohol Use: Yes Alcohol type: beer, wine and hard liquor Hx Substance Use: No Preferred Language: Cymraes Communication Ability: Effective [employer] Business Administrator Required: No Beliefs That Will Affect Care: None Current Living Situation: Spouse Other Information That Helps Us Care for You: No Feels Safe at Home: Yes Safety Concerns: Feels Safe At This Time Assistive Devices: CPAP Review of Systems Review of Systems: All systems reviewed & are unremarkable except as noted in HPI & below Physical Exam Constitutional: WD/WN, vitals as above Eyes: PERRL, conjunctivae normal, anicteric sclerae ENMT: external ear and nose normal, oropharynx normal Respiratory: normal respiratory effort, lungs clear to auscultation Cardiovascular: RRR, no murmur, no edema Gastrointestinal (Abdomen): Inspection/Auscultation: abdomen normal to inspection and normal bowel sounds; abdomen not distended Percussion/Palpation: abdomen soft; no guarding moderately TTP upper abd; more epigastric/LUQ, no rebound Skin: no rashes, warm and dry Psychiatric: A+Ox3, euthymic affect Results & Data ([facility]) Vital Signs (Past 12 Hours) Vital Signs Temp Pulse Pulse Pulse Resp BP Pulse Ox 04/06/22 07:58 36.9 C 107 H 18 129/80 91 04/06/22 07:23 106 H 04/06/22 03:53 36.9 C 99 H 20 129/81 95 04/06/22 01:14 37.5 C 108 H 16 118/78 93 04/06/22 00:56 112 H 04/05/22 22:55 106 H 14 138/81 96 04/05/22 21:00 109 H 20 126/77 94 Laboratory Results 04/06/22 04/06/22 04/06/22 Range/Units 18:31 07:12 07:12 WBC 14.30 H (4.8-10.8) K/ul RBC 5.04 (4.63-6.08) M/uL Hgb 14.9 (14.0-18.0) g/dl Hct 44.3 (40.1-51.0) % MCV 87.9 D (80.0-100.0) fL MCH 29.6 (25.0-34.0) pg MCHC 33.6 (32.0-36.0) g/dL RDW Std Deviation 44.2 (36.4-46.3) fL RDW Coeff of Tamanna 13.8 (11.5-14.5) % Plt Count 304 (130-400) K/uL MPV 9.8 (9.4-12.4) fL Immature Gran % (Auto) % Neut % (Auto) % Lymph % (Auto) % Hendricks % (Auto) % Eos % (Auto) % Baso % (Auto) % Neut # (Auto) (1.4-6.5) K/uL Lymph # (Auto) (1.2-3.4) K/uL Hendricks # (Auto) (0.24-0.82) K/uL Eos # (Auto) (0-0.50) K/uL Baso # (Auto) (0-0.2) K/uL Immature Gran # (Auto) (0.00-0.02) K/uL PT (9.0-12.0) Seconds INR (0.9-1.1) APTT (21.0-31.0) Seconds PTT Ratio Sodium 135 L (136-145) mmol/L Potassium 3.7 (3.5-5.1) mmol/L Chloride 101 (98-107) mmol/L Carbon Dioxide 26 (21-32) mmol/L Anion Gap 8 (3-11) BUN 10 (6-23) mg/dl Creatinine 0.74 (0.6-1.4) mg/dl Est Cr Clr Drug Dosing 163.9 ml/min Est GFR ( Amer) 122.1 ml/min Est GFR (Non-Af Amer) 105.3 ml/min BUN/Creatinine Ratio 13.5 (10-20) Glucose 185 H (70-99(Fasting)) mg/dl POC Glucose (70-99) mg/dl Estimat Average Glucose 212 mg/dl Hemoglobin A1c 9.0 H (4.5-5.6) % Calcium 8.4 L (8.5-10.1) mg/dl Magnesium (1.7-2.4) mg/dl Total Bilirubin 2.0 H (0.2-1.0) mg/dl AST 14 (13-39) U/L ALT 15 (7-52) U/L Alkaline Phosphatase 48 (34-104) U/L Troponin I High Sens (0-20) pg/ml Total Protein 6.8 (6.0-8.3) gm/dl Albumin 3.6 (3.4-5.0) gm/dl Globulin 3.2 (2.5-4.0) gm/dl Albumin/Globulin Ratio 1.1 (0.9-2) Triglycerides (0-150) mg/dl Lipase (11-82) U/L Procalcitonin (0-0.5) ng/ml Urine Color Urine Appearance (Clear) Urine pH (4.5-7.5) Ur Specific [place] (1.000-1.030) Urine Protein (Negative) Urine Glucose (UA) (Negative) Urine Ketones (Negative) Urine Blood (Negative) Urine Nitrite (Negative) Urine Bilirubin (Negative) Urine Urobilinogen (Negative) Ur Leukocyte Esterase (Negative) Urine WBC (Auto) (0-5) /hpf Urine RBC (Auto) (0-4) /hpf U Hyaline Cast (Auto) (0-5) /lpf U Epithel Cells (Auto) (0-5) /lpf Urine Bacteria (Auto) (Negative) SARS-CoV-2, RNA, NAAT (NEGATIVE) 04/06/22 04/06/22 04/06/22 Range/Units 07:12 05:56 01:58 WBC (4.8-10.8) K/ul RBC (4.63-6.08) M/uL Hgb (14.0-18.0) g/dl Hct (40.1-51.0) % MCV (80.0-100.0) fL MCH (25.0-34.0) pg MCHC (32.0-36.0) g/dL RDW Std Deviation (36.4-46.3) fL RDW Coeff of Tamanna (11.5-14.5) % Plt Count (130-400) K/uL MPV (9.4-12.4) fL Immature Gran % (Auto) % Neut % (Auto) % Lymph % (Auto) % Hendricks % (Auto) % Eos % (Auto) % Baso % (Auto) % Neut # (Auto) (1.4-6.5) K/uL Lymph # (Auto) (1.2-3.4) K/uL Hendricks # (Auto) (0.24-0.82) K/uL Eos # (Auto) (0-0.50) K/uL Baso # (Auto) (0-0.2) K/uL Immature Gran # (Auto) (0.00-0.02) K/uL PT 28.7 H (9.0-12.0) Seconds INR 2.9 H (0.9-1.1) APTT (21.0-31.0) Seconds PTT Ratio Sodium (136-145) mmol/L Potassium (3.5-5.1) mmol/L Chloride (98-107) mmol/L Carbon Dioxide (21-32) mmol/L Anion Gap (3-11) BUN (6-23) mg/dl Creatinine (0.6-1.4) mg/dl Est Cr Clr Drug Dosing ml/min Est GFR ( Amer) ml/min Est GFR (Non-Af Amer) ml/min BUN/Creatinine Ratio (10-20) Glucose (70-99(Fasting)) mg/dl POC Glucose 182 H 214 H (70-99) mg/dl Estimat Average Glucose mg/dl Hemoglobin A1c (4.5-5.6) % Calcium (8.5-10.1) mg/dl Magnesium (1.7-2.4) mg/dl Total Bilirubin (0.2-1.0) mg/dl AST (13-39) U/L ALT (7-52) U/L Alkaline Phosphatase (34-104) U/L Troponin I High Sens (0-20) pg/ml Total Protein (6.0-8.3) gm/dl Albumin (3.4-5.0) gm/dl Globulin (2.5-4.0) gm/dl Albumin/Globulin Ratio (0.9-2) Triglycerides (0-150) mg/dl Lipase (11-82) U/L Procalcitonin (0-0.5) ng/ml Urine Color Urine Appearance (Clear) Urine pH (4.5-7.5) Ur Specific [place] (1.000-1.030) Urine Protein (Negative) Urine Glucose (UA) (Negative) Urine Ketones (Negative) Urine Blood (Negative) Urine Nitrite (Negative) Urine Bilirubin (Negative) Urine Urobilinogen (Negative) Ur Leukocyte Esterase (Negative) Urine WBC (Auto) (0-5) /hpf Urine RBC (Auto) (0-4) /hpf U Hyaline Cast (Auto) (0-5) /lpf U Epithel Cells (Auto) (0-5) /lpf Urine Bacteria (Auto) (Negative) SARS-CoV-2, RNA, NAAT (NEGATIVE) 04/05/22 04/05/22 04/05/22 Range/Units 21:00 19:17 18:31 WBC (4.8-10.8) K/ul RBC (4.63-6.08) M/uL Hgb (14.0-18.0) g/dl Hct (40.1-51.0) % MCV (80.0-100.0) fL MCH (25.0-34.0) pg MCHC (32.0-36.0) g/dL RDW Std Deviation (36.4-46.3) fL RDW Coeff of Tamanna (11.5-14.5) % Plt Count (130-400) K/uL MPV (9.4-12.4) fL Immature Gran % (Auto) % Neut % (Auto) % Lymph % (Auto) % Hendricks % (Auto) % Eos % (Auto) % Baso % (Auto) % Neut # (Auto) (1.4-6.5) K/uL Lymph # (Auto) (1.2-3.4) K/uL Hendricks # (Auto) (0.24-0.82) K/uL Eos # (Auto) (0-0.50) K/uL Baso # (Auto) (0-0.2) K/uL Immature Gran # (Auto) (0.00-0.02) K/uL PT (9.0-12.0) Seconds INR (0.9-1.1) APTT 51.8 H* (21.0-31.0) Seconds PTT Ratio 1.9 Sodium (136-145) mmol/L Potassium (3.5-5.1) mmol/L Chloride (98-107) mmol/L Carbon Dioxide (21-32) mmol/L Anion Gap (3-11) BUN (6-23) mg/dl Creatinine (0.6-1.4) mg/dl Est Cr Clr Drug Dosing ml/min Est GFR ( Amer) ml/min Est GFR (Non-Af Amer) ml/min BUN/Creatinine Ratio (10-20) Glucose (70-99(Fasting)) mg/dl POC Glucose (70-99) mg/dl Estimat Average Glucose mg/dl Hemoglobin A1c (4.5-5.6) % Calcium (8.5-10.1) mg/dl Magnesium (1.7-2.4) mg/dl Total Bilirubin (0.2-1.0) mg/dl AST (13-39) U/L ALT (7-52) U/L Alkaline Phosphatase (34-104) U/L Troponin I High Sens (0-20) pg/ml Total Protein (6.0-8.3) gm/dl Albumin (3.4-5.0) gm/dl Globulin (2.5-4.0) gm/dl Albumin/Globulin Ratio (0.9-2) Triglycerides (0-150) mg/dl Lipase (11-82) U/L Procalcitonin (0-0.5) ng/ml Urine Color Dark Yellow Urine Appearance Clear (Clear) Urine pH 7.0 (4.5-7.5) Ur Specific [place] 1.032 H (1.000-1.030) Urine Protein 3+ H (Negative) Urine Glucose (UA) 3+ H (Negative) Urine Ketones 1+ H (Negative) Urine Blood 2+ H (Negative) Urine Nitrite Negative (Negative) Urine Bilirubin Negative (Negative) Urine Urobilinogen Negative (Negative) Ur Leukocyte Esterase Negative (Negative) Urine WBC (Auto) 1-5 (0-5) /hpf Urine RBC (Auto) 10-30 H (0-4) /hpf U Hyaline Cast (Auto) 1-5 (0-5) /lpf U Epithel Cells (Auto) 10-20 H (0-5) /lpf Urine Bacteria (Auto) Negative (Negative) SARS-CoV-2, RNA, NAAT NEGATIVE (NEGATIVE) 04/05/22 04/05/22 04/05/22 Range/Units 18:31 18:31 18:31 WBC (4.8-10.8) K/ul RBC (4.63-6.08) M/uL Hgb (14.0-18.0) g/dl Hct (40.1-51.0) % MCV (80.0-100.0) fL MCH (25.0-34.0) pg MCHC (32.0-36.0) g/dL RDW Std Deviation (36.4-46.3) fL RDW Coeff of Tamanna (11.5-14.5) % Plt Count (130-400) K/uL MPV (9.4-12.4) fL Immature Gran % (Auto) % Neut % (Auto) % Lymph % (Auto) % Hendricks % (Auto) % Eos % (Auto) % Baso % (Auto) % Neut # (Auto) (1.4-6.5) K/uL Lymph # (Auto) (1.2-3.4) K/uL Hendricks # (Auto) (0.24-0.82) K/uL Eos # (Auto) (0-0.50) K/uL Baso # (Auto) (0-0.2) K/uL Immature Gran # (Auto) (0.00-0.02) K/uL PT 42.4 H (9.0-12.0) Seconds INR 4.3 H (0.9-1.1) APTT (21.0-31.0) Seconds PTT Ratio Sodium (136-145) mmol/L Potassium (3.5-5.1) mmol/L Chloride (98-107) mmol/L Carbon Dioxide (21-32) mmol/L Anion Gap (3-11) BUN (6-23) mg/dl Creatinine (0.6-1.4) mg/dl Est Cr Clr Drug Dosing ml/min Est GFR ( Amer) ml/min Est GFR (Non-Af Amer) ml/min BUN/Creatinine Ratio (10-20) Glucose (70-99(Fasting)) mg/dl POC Glucose (70-99) mg/dl Estimat Average Glucose mg/dl Hemoglobin A1c (4.5-5.6) % Calcium (8.5-10.1) mg/dl Magnesium (1.7-2.4) mg/dl Total Bilirubin (0.2-1.0) mg/dl AST (13-39) U/L ALT (7-52) U/L Alkaline Phosphatase (34-104) U/L Troponin I High Sens (0-20) pg/ml Total Protein (6.0-8.3) gm/dl Albumin (3.4-5.0) gm/dl Globulin (2.5-4.0) gm/dl Albumin/Globulin Ratio (0.9-2) Triglycerides 505 H (0-150) mg/dl Lipase (11-82) U/L Procalcitonin 0.16 (0-0.5) ng/ml Urine Color Urine Appearance (Clear) Urine pH (4.5-7.5) Ur Specific [place] (1.000-1.030) Urine Protein (Negative) Urine Glucose (UA) (Negative) Urine Ketones (Negative) Urine Blood (Negative) Urine Nitrite (Negative) Urine Bilirubin (Negative) Urine Urobilinogen (Negative) Ur Leukocyte Esterase (Negative) Urine WBC (Auto) (0-5) /hpf Urine RBC (Auto) (0-4) /hpf U Hyaline Cast (Auto) (0-5) /lpf U Epithel Cells (Auto) (0-5) /lpf Urine Bacteria (Auto) (Negative) SARS-CoV-2, RNA, NAAT (NEGATIVE) 04/05/22 04/05/22 Range/Units 18:31 18:31 WBC 13.93 H (4.8-10.8) K/ul RBC 5.52 (4.63-6.08) M/uL Hgb 16.2 (14.0-18.0) g/dl Hct 46.2 (40.1-51.0) % MCV 83.7 (80.0-100.0) fL MCH 29.3 (25.0-34.0) pg MCHC 35.1 (32.0-36.0) g/dL RDW Std Deviation 41.5 (36.4-46.3) fL RDW Coeff of Tamanna 13.7 (11.5-14.5) % Plt Count 334 (130-400) K/uL MPV 9.6 (9.4-12.4) fL Immature Gran % (Auto) 0.6 % Neut % (Auto) 77.0 % Lymph % (Auto) 14.4 % Hendricks % (Auto) 7.5 % Eos % (Auto) 0.1 % Baso % (Auto) 0.4 % Neut # (Auto) 10.75 H (1.4-6.5) K/uL Lymph # (Auto) 2.00 (1.2-3.4) K/uL Hendricks # (Auto) 1.04 H (0.24-0.82) K/uL Eos # (Auto) 0.01 (0-0.50) K/uL Baso # (Auto) 0.05 (0-0.2) K/uL Immature Gran # (Auto) 0.08 H (0.00-0.02) K/uL PT (9.0-12.0) Seconds INR (0.9-1.1) APTT (21.0-31.0) Seconds PTT Ratio Sodium 133 L (136-145) mmol/L Potassium 3.2 L (3.5-5.1) mmol/L Chloride 97 L (98-107) mmol/L Carbon Dioxide 25 (21-32) mmol/L Anion Gap 11 (3-11) BUN 10 (6-23) mg/dl Creatinine 0.81 (0.6-1.4) mg/dl Est Cr Clr Drug Dosing 149.1 ml/min Est GFR ( Amer) 117.6 ml/min Est GFR (Non-Af Amer) 101.5 ml/min BUN/Creatinine Ratio 12.3 (10-20) Glucose 208 H (70-99(Fasting)) mg/dl POC Glucose (70-99) mg/dl Estimat Average Glucose mg/dl Hemoglobin A1c (4.5-5.6) % Calcium 9.1 (8.5-10.1) mg/dl Magnesium 1.9 (1.7-2.4) mg/dl Total Bilirubin 2.1 H (0.2-1.0) mg/dl AST 18 (13-39) U/L ALT 21 (7-52) U/L Alkaline Phosphatase 55 (34-104) U/L Troponin I High Sens 5.8 (0-20) pg/ml Total Protein 7.6 (6.0-8.3) gm/dl Albumin 4.0 (3.4-5.0) gm/dl Globulin 3.6 (2.5-4.0) gm/dl Albumin/Globulin Ratio 1.1 (0.9-2) Triglycerides (0-150) mg/dl Lipase 329 H (11-82) U/L Procalcitonin (0-0.5) ng/ml Urine Color Urine Appearance (Clear) Urine pH (4.5-7.5) Ur Specific [place] (1.000-1.030) Urine Protein (Negative) Urine Glucose (UA) (Negative) Urine Ketones (Negative) Urine Blood (Negative) Urine Nitrite (Negative) Urine Bilirubin (Negative) Urine Urobilinogen (Negative) Ur Leukocyte Esterase (Negative) Urine WBC (Auto) (0-5) /hpf Urine RBC (Auto) (0-4) /hpf U Hyaline Cast (Auto) (0-5) /lpf U Epithel Cells (Auto) (0-5) /lpf Urine Bacteria (Auto) (Negative) SARS-CoV-2, RNA, NAAT (NEGATIVE) Diagnostic Findings CTAP FINDINGS: No pneumatosis, free air or portal venous gas is present. There is hepatic steatosis. There is no biliary or pancreatic ductal dilatation. Note is made of moderate fluid centered on the pancreatic body and tail which extends into the mesentery and left anterior pararenal space. No peripancreatic fluid collection is present. There is no evidence for pancreatic necrosis. Major vasculature is patent. Spleen, adrenal glands and kidneys are unremarkable. There is no hydronephrosis. Colon is fluid-filled. No evidence for a bowel obstruction. Sigmoid diverticulosis is noted without evidence for acute diverticulitis. Prostate is enlarged, measuring 5.3 cm in transverse dimension. Small fat-containing umbilical hernia is present. There are small bilateral fat- containing inguinal hernias. IMPRESSION: 1. Findings consistent with acute pancreatitis. Moderate peripancreatic fluid extending into the mesentery and left anterior pararenal space. No peripancreatic fluid collection. No evidence for gland necrosis. 2. Hepatic steatosis. CTA chest: FINDINGS: No pulmonary emboli are identified although this exam is compromised by respiratory motion. There is no thoracic aortic dissection. Size of the heart is normal. There is no pericardial effusion. Moderate coronary artery calcification is present. No consolidation to suggest pneumonia. There is no pneumothorax or pleural effusion. Abdomen and pelvis CT will be reported separately. Hepatic steatosis in findings consistent with acute pancreatitis are better depicted on that exam IMPRESSION: 1. No pulmonary emboli identified although exam mildly compromised by respiratory motion. 2. No acute process within the chest. 3. Findings consistent with acute pancreatitis, better depicted on the CT of the abdomen and pelvis which will be reported separately. GB US: FINDINGS: Pancreas: Not visualized due to the overlying bowel gas and the patient's body habitus. Liver: The liver is echogenic consistent with fatty change. 21 cm in length. Gallbladder: No gallbladder wall thickening. No gallstones. CBD: Not visualized. Right kidney: No hydronephrosis. IMPRESSION: 1. Hepatomegaly demonstrating fatty change. 2. Normal gallbladder. No gallstones. 2. The pancreas and common bile duct were not visualized. (1) Abdominal pain Abdominal location: generalized Qualified Code(s): R10.84 - Generalized abdominal pain (2) Acute pancreatitis Acute pancreatitis complication: unspecified Pancreatitis type: unspecified pancreatitis type Qualified Code(s): K85.90 - Acute pancreatitis without necrosis or infection, unspecified
--- NOTE | 2022-04-06 13:09 | Magnetic Resonance Report ---
MR MRCP HISTORY: 51 years-old Male eval for choledocholithiasis acute fever with generalized abdominal pain. Acute pancreatitis. COMPARISON: CT abdomen pelvis 04/05/2022 TECHNIQUE: MRCP without the use of IV contrast was obtained FINDINGS: The heart is mildly enlarged. No acute process of the imaged lower chest. Degenerative changes are no osmani within the spine. Mild lumbar levoscoliosis. The study is motion degraded. There is moderate tammy pancreatic fluid which extends into the mesentery, left anterior pararenal space and left pericolic g utter. Interstitial edema of the pancreas and most pronounced in the pancreatic body and tail. There is no pancreatic ductal dilation. There is a 10 mm T2 hyperintense structure involving the pancreatic body on image 20 series 5 which appears to demonstrate connection with the adjacent pancreatic duct. This is suggestive of a probable sidebranch IPMN. Unremarkable gallbladder. No intrahepatic or extra hepatic biliary ductal dilation. No cholelithiasis or choledocholithiasis. Normal common bile duct, 3 mm. No bowel obstruction or bowel wall thickening. The liver is mildly enlarged. Bilateral perinephric st randing. Unremarkable spleen and adrenal glands. IMPRESSION: 1. Stable appearance of the acute interstitial edematous pancreatitis with moderate peripancreatic fl uid extending into the mesentery and left pericolic gutter. 2. No acute peripancreatic fluid collection identified. 3. No cholelithiasis, biliary ductal dilation or choledocholithiasis identified. ACT 112: Negative or not required by law. The above report was generated using voice recognition software. It may contain grammatical, syntax o r spelling errors. Electronically signed by: Saad Barron M.D. 04/06/2022 1:07 PM
--- NOTE | 2022-04-06 13:41 | Communication Note ---
Date of Service: April 06, 2022 The patient's MRCP was negative for evidence of cholelithiasis or choledocholithiasis. Would recommend continued use of IV hydration and slowly advance the diet as tolerated. The patient will be scheduled for outpatient endoscopic ultrasound in 6 to 8 weeks. Call with any questions or concerns during the remainder of the hospital admission.
--- NOTE | 2022-04-06 17:59 | Hospitalist Progress Note ---
Date of Service April 06, 2022 Assessment & Plan (1) Acute pancreatitis: Plan: Presented with positive SIRS criteria Patient predisposed by hypertriglyceridemia, COVID-19 illness Abdominal pain with nausea has been going on for last 3 days Lipase is minimally elevated CT scan showed acute pancreatitis Status post MRCP without any evidence of gallstones and are common bile duct stone Will start clears orally Recent COVID-19 illness improving on antiviral course (onset of symptoms 03/24/22 as per patient account) COVID-19 precautions (despite negative ER test) as patient still within 3 weeks of onset of symptoms Has significant cough without any shortness of breath Has been saturating normally on room air Full advised to finish the course of antiviral We will get definitive COVID-19 test after 9 PM tonight as per infection control hx saddle PE on Coumadin, INR supratherapeutic CTA did not show any pulmonary embolism We will continue Coumadin Hypertension, stable Remains on the lower side at 98/64 Getting cautious amount of intravenous fluid Hyperlipidemia on statin rx Morbid obesity with CECILIO sp surgery on CPAP No acute shortness of breath and/or desaturation DM2 on oral medications, suboptimal control as of recent hemoglobin A1c of 7.08 March 2021 Basal insulin adjusted for n.p.o. status, ISS BG goal 1 10-1 40, update hemoglobin A1c Monitor blood sugars Hypokalemia secondary to diarrhea and home diuretic Rx Replaced We will monitor PRP DVT prophylaxis. Coumadin INR goal between 2 and 3 if no procedural intervention Full code Admission and Anticipated Discharge Date Admission Date: April 05, 2022 Subjective 04/06/2022 The patient was seen and examined in medical telemetry unit and in the COVID room He complains to abdominal pain specially with movement with nausea and vomited early this morning Has cough without any respiratory symptoms of shortness of breath and has been saturating normally on room air Review of Systems Review of Systems: All systems reviewed and are unremarkable except as noted below Physical Exam Physical Exam: Lying on a chair without any acute shortness of breath but has abdominal discomfort Constitutional: well developed, well nourished, + ill appearing and + morbidly obese Eyes: PERRL, conjunctivae normal, anicteric sclerae ENMT: external ear and nose normal, oropharynx normal Respiratory: no respiratory distress Auscultation: + diminished lung sounds; no crackles and no wheezes Cardiovascular: Rate/Rhythm: regular rate and regular rhythm; not tachycardic Heart Sounds: normal S1 and normal S2; no murmur Extremities: + edema (Trace edema bilaterally) Gastrointestinal (Abdomen): Inspection/Auscultation: + abdomen distended and normal bowel sounds Percussion/Palpation: + abdomen tender (Mildly tender all over) and abdomen soft Musculoskeletal: No acute arthritis in any joint Neurologic: Alert, awake and oriented x3. No focal sensory or no motor deficit appreciated Psychiatric: A+Ox3, euthymic affect Lymphatic: no cervical or axillary lymphadenopathy Results & Data Results & Data ([facility]) Vital Signs (Past 12 Hours) Vital Signs Temp Pulse Pulse Resp BP Pulse Ox 04/06/22 15:38 36.5 C 102 H 17 98/64 L 91 04/06/22 15:27 104 H 04/06/22 12:00 37.4 C 112 H 18 116/72 92 04/06/22 07:58 36.9 C 107 H 18 129/80 91 04/06/22 07:23 106 H Laboratory Results Short CBC 04/05/22 04/06/22 Range/Units 18:31 07:12 WBC 13.93 H 14.30 H (4.8-10.8) K/ul Hgb 16.2 14.9 (14.0-18.0) g/dl Hct 46.2 44.3 (40.1-51.0) % Plt Count 334 304 (130-400) K/uL [facility] 04/05/22 04/06/22 18:31 07:12 Sodium 133 L 135 L Potassium 3.2 L 3.7 Chloride 97 L 101 Carbon Dioxide 25 26 BUN 10 10 Creatinine 0.81 0.74 Glucose 208 H 185 H Calcium 9.1 8.4 L Liver Function 04/05/22 04/06/22 04/06/22 Range/Units 18:31 07:12 07:12 Total Bilirubin 2.1 H 2.0 H (0.2-1.0) mg/dl Direct Bilirubin 0.3 H (0-0.2) mg/dl AST 18 14 (13-39) U/L ALT 21 15 (7-52) U/L Alkaline Phosphatase 55 48 (34-104) U/L Albumin 4.0 3.6 (3.4-5.0) gm/dl Urine 04/05/22 Range/Units 19:17 Urine Color Dark Yellow Urine Appearance Clear (Clear) Urine pH 7.0 (4.5-7.5) Ur Specific [place] 1.032 H (1.000-1.030) Urine Protein 3+ H (Negative) Urine Glucose (UA) 3+ H (Negative) Medications Administered Current Inpatient Medications Acetaminophen (Acetaminophen 325 Mg Tab) 650 mg PO Q4H PRN PRN Reason: Pain or Fever Stop: 05/06/22 01:10 Dextrose (Dextrose 50% 50 Ml Syringe) 25 - 50 ml IV UD PRN; Protocol PRN Reason: Hypoglycemia Protocol Stop: 05/06/22 02:46 Fenofibrate (Fenofibrate Nanocrystallized 145 Mg Tablet) 145 mg PO QAM [facility] Stop: 05/06/22 08:59 Last Admin: 04/06/22 08:01 Dose: 145 mg Documented by: Fluticasone Propionate (Fluticasone Propionate Na Spr 16 Gm Btl) 1 sprays NA DAILY PRN PRN Reason: allergies Stop: 05/06/22 01:10 Glucagon (Glucagon For Inj 1 Mg Vial) 1 mg SQ UD PRN; Protocol PRN Reason: Hypoglycemia Protocol Stop: 05/06/22 02:46 Glucose (Glucose 10 Tabs/Tube) 4 - 8 tabs PO UD PRN; Protocol PRN Reason: Hypoglycemia Protocol Stop: 05/06/22 02:46 Glucose (Glucose 40% Gel 15 Gm Tube) 15 - 30 gm PO UD PRN; Protocol PRN Reason: Hypoglycemia Protocol Stop: 05/06/22 02:46 Lactated Ringer's (Lr) 1,000 mls @ 200 mls/hr IV .Q5H [facility] Stop: 05/06/22 03:59 Last Admin: 04/06/22 16:06 Dose: 200 mls/hr Documented by: Promethazine HCl 12.5 mg/ (Sodium Chloride) 50.5 mls @ 202 mls/hr IV Q6H PRN PRN Reason: Nausea And Vomiting Stop: 05/06/22 01:10 Last Infusion: 04/06/22 02:14 Dose: Infused Documented by: Insulin Aspart (Insulin Aspart Per Unit) 0 units SC Q6 [facility] Stop: 05/06/22 03:14 Last Admin: 04/06/22 13:07 Dose: 2 units Documented by: Insulin Glargine (Lantus Per Unit Charge) 5 units SQ HS [facility] Stop: 05/06/22 01:10 Last Admin: 04/06/22 02:31 Dose: 5 units Documented by: Lisinopril (Lisinopril 20 Mg Tab) 20 mg PO QAM [facility] Stop: 05/06/22 08:59 Last Admin: 04/06/22 08:01 Dose: 20 mg Documented by: Melatonin (Melatonin 3 Mg Tab) 4.5 mg PO HS [facility] Stop: 05/06/22 20:59 Miscellaneous (Molnupiravir [Lagevrio]: Order Awaiting Action) 1 ea N/A QS [facility] Stop: 05/06/22 07:59 Last Admin: 04/06/22 16:14 Dose: Not Given Documented by: Miscellaneous (Carbohydrates For Hypoglycemia ) 15 - 30 gm PO UD PRN PRN Reason: Hypoglycemia Protocol Stop: 05/06/22 02:46 Morphine Sulfate (Morphine Sulfate 4 Mg/Ml 1 Ml Carp\Vial) 4 mg IV Q4H PRN PRN Reason: Pain Stop: 04/20/22 01:10 Last Admin: 04/06/22 12:56 Dose: 4 mg Documented by: Oxycodone HCl (Oxycodone Hcl Ir 5 Mg Tab (Immediate Release)) 5 - 10 mg PO QID PRN PRN Reason: Pain Stop: 04/20/22 01:10 Thiamine HCl (Thiamine Hcl 100 Mg Tab) 100 mg PO DAILY [facility] Stop: 05/06/22 08:59 Last Admin: 04/06/22 08:01 Dose: 100 mg Documented by: (1) Acute pancreatitis Acute pancreatitis complication: unspecified Pancreatitis type: unspecified pancreatitis type Qualified Code(s): K85.90 - Acute pancreatitis without necrosis or infection, unspecified
[2022-04-06] MEDS: MELATONIN 3 MG TAB PO SCH (20:45)
[2022-04-06] MEDS: ACETAMINOPHEN 325 MG TAB PO PRN (20:54)
--- NOTE | 2022-04-06 23:00 | Electrocardiogram Report ---
Test Reason : Blood Pressure : / mmHG Vent. Rate : 124 BPM Atrial Rate : 124 BPM P-R Int : 122 ms QRS Dur : 082 ms QT Int : 306 ms P-R-T Axes : 028 -12 032 degrees QTc Int : 439 ms Sinus tachycardia with Fusion complexes Otherwise normal ECG When compared with ECG of 14-FEB-2020 15:14, Fusion complex is now Present Vent. rate has increased BY 53 BPM Confirmed by Corey Natarajan ([id number]) on 04/06/2022 10:59:42 PM Referred By: REFERRED SELF Confirmed By:Corey Natarajan
[2022-04-07] MEDS: INSULIN ASPART PER UNIT SC SCH ×5 (00:21→21:32)
[2022-04-07] MEDS: LACTATED RINGER'S 1,000 ML IV SCH ×5 (00:22→20:46)
[2022-04-07] MEDS: MoRPHine SULFATE 4 MG/ML 1 ML CARP\\VIAL IV PRN (02:25)
[2022-04-07 07:09] LABS: Basophils # (auto) 0.05 K/uL (0-0.2); Basophils % (auto) 0.4 %; Eosinophils # (auto) 0.16 K/uL (0-0.50); Eosinophils % (auto) 1.2 %; Hematocrit (blood only) 38.7 % (40.1-51.0); Hemoglobin 12.8 g/dl (14.0-18.0); Immature Granulocytes # (auto) 0.13 K/uL (0.00-0.02); Lymphocytes # (auto) 1.76 K/uL (1.2-3.4); Lymphocytes % (auto) 13.3 %; Mean Corpuscular Hemoglobin 29.6 pg (25.0-34.0); Mean Corpuscular Hgb Conc 33.1 g/dL (32.0-36.0); Mean Corpuscular Volume 89.4 fL (80.0-100.0); Mean Platelet Volume 9.6 fL (9.4-12.4); Monocytes # (auto) 1.01 K/uL (0.24-0.82); Monocytes % (auto) 7.6 %; Neutrophils # (auto) 10.17 K/uL (1.4-6.5); Neutrophils % (auto) 76.5 %; Platelet Count 274 K/uL (130-400); RDW Coefficient of Variation 13.7 % (11.5-14.5); Red Blood Count 4.33 M/uL (4.63-6.08); White Blood Count 13.28 K/ul (4.8-10.8)
[2022-04-07 07:40] LABS: INR 1.8 (0.9-1.1); Prothrombin Time 18.3 Seconds (9.0-12.0)
[2022-04-07] MEDS: lisinopril 20 MG TAB PO SCH (07:48)
[2022-04-07] MEDS: FENOFIBRATE NANOCRYSTALLIZED 145 MG TABLET PO SCH (07:49)
[2022-04-07] MEDS: THIAMINE HCL 100 MG TAB PO SCH (07:49)
[2022-04-07 07:53] LABS: BUN Creatinine Ratio 14.7 (10-20); Calcium 8.2 mg/dl (8.5-10.1); Creatinine Clr Calc Pharmacy 161.7 ml/min; Est GFR (African American) 121.4 ml/min; Est GFR (Non-African American) 104.7 ml/min; Potassium 3.3 mmol/L (3.5-5.1)
[2022-04-07 08:05] LABS: Bilirubin,Total 1.5 mg/dl (0.2-1.0); Globulin 3.1 gm/dl (2.5-4.0); Phosphorus 1.5 mg/dl (2.5-4.9); Total Protein 6.1 gm/dl (6.0-8.3)
[2022-04-07] MEDS ORDERED: POTASSIUM PHOS 3 MMOL/1 ML INFUSION IV STA (08:05)
[2022-04-07] MEDS ORDERED: POTASSIUM PHOSPHATE 30 MMOL in SODIUM CHLORIDE 0.9% 500 ML IV ONE (08:30)
[2022-04-07] MEDS: ACETAMINOPHEN 325 MG TAB PO PRN ×2 (11:48→20:52)
--- NOTE | 2022-04-07 16:33 | Hospitalist Progress Note ---
Date of Service April 07, 2022 Assessment & Plan (1) Acute pancreatitis: Plan: Presented with positive SIRS criteria Patient predisposed by hypertriglyceridemia, COVID-19 illness Abdominal pain with nausea has been going on for last 3 days Lipase is minimally elevated CT scan showed acute pancreatitis Status post MRCP without any evidence of gallstones and are common bile duct stone Will start clears orally Having more pain in the lower abdomen-will not advance diet We will monitor labs tomorrow Stool for C. difficile colitis as he is having diarrhea Recent COVID-19 illness improving on antiviral course (onset of symptoms 03/24/22 as per patient account) COVID-19 precautions (despite negative ER test) as patient still within 3 weeks of onset of symptoms Has significant cough without any shortness of breath Has been saturating normally on room air Full advised to finish the course of antiviral We will get definitive COVID-19 test after 9 PM tonight as per infection control COVID test is not back yet hx saddle PE on Coumadin, INR supratherapeutic CTA did not show any pulmonary embolism We will continue Coumadin Hypertension, stable Remains on the lower side at 98/64 Getting cautious amount of intravenous fluid Hyperlipidemia on statin rx Morbid obesity with CECILIO sp surgery on CPAP No acute shortness of breath and/or desaturation DM2 on oral medications, suboptimal control as of recent hemoglobin A1c of 7.08 March 2021 Basal insulin adjusted for n.p.o. status, ISS BG goal 1 10-1 40, update hemoglobin A1c Monitor blood sugars Hypokalemia secondary to diarrhea and home diuretic Rx Replaced We will monitor PRP DVT prophylaxis. Coumadin INR goal between 2 and 3 if no procedural intervention Will restart Coumadin Full code Admission and Anticipated Discharge Date Admission Date: April 05, 2022 Subjective 04/06/2022 The patient was seen and examined in medical telemetry unit and in the COVID room He complains to abdominal pain specially with movement with nausea and vomited early this morning Has cough without any respiratory symptoms of shortness of breath and has been saturating normally on room air 04/07/2022 The patient was seen and examined in medical telemetry unit and in the COVID room He complains to have pain in the right lower quadrant and also right lower left lower quadrant He has been having diarrhea Denies any fever and or chills Denies any shortness of breath and her cough Review of Systems Review of Systems: All systems reviewed and are unremarkable except as noted below Physical Exam Physical Exam: Lying on a chair without any acute shortness of breath but has abdominal discomfort Constitutional: well developed, well nourished, + ill appearing and + morbidly obese Eyes: PERRL, conjunctivae normal, anicteric sclerae ENMT: external ear and nose normal, oropharynx normal Respiratory: no respiratory distress Auscultation: + diminished lung sounds; no crackles and no wheezes Cardiovascular: Rate/Rhythm: regular rate and regular rhythm; not tachycardic Heart Sounds: normal S1 and normal S2; no murmur Extremities: + edema (Trace edema bilaterally) Gastrointestinal (Abdomen): Inspection/Auscultation: + abdomen distended and normal bowel sounds Percussion/Palpation: + abdomen tender (Mildly tender all over. More tender in the lower quadrants) and abdomen soft Musculoskeletal: No acute arthritis in any joint Neurologic: Alert, awake and oriented x3. No focal sensory or no motor defici t appreciated Psychiatric: A+Ox3, euthymic affect Lymphatic: no cervical or axillary lymphadenopathy Results & Data Results & Data ([facility]) Vital Signs (Past 12 Hours) Vital Signs Temp Pulse Pulse Resp BP Pulse Ox 04/07/22 14:57 84 04/07/22 11:33 36.9 C 99 H 18 123/78 94 04/07/22 08:44 37.2 C 109 H 18 107/73 92 04/07/22 07:07 100 H Laboratory Results Short CBC 04/07/22 Range/Units 06:36 WBC 13.28 H (4.8-10.8) K/ul Hgb 12.8 L (14.0-18.0) g/dl Hct 38.7 L (40.1-51.0) % Plt Count 274 (130-400) K/uL BMP 04/07/22 06:36 Sodium 133 L Potassium 3.3 L Chloride 101 Carbon Dioxide 26 BUN 11 Creatinine 0.75 Glucose 161 H Calcium 8.2 L Liver Function 04/07/22 Range/Units 06:36 Total Bilirubin 1.5 H (0.2-1.0) mg/dl AST 12 L (13-39) U/L ALT 11 (7-52) U/L Alkaline Phosphatase 46 (34-104) U/L Albumin 3.0 L (3.4-5.0) gm/dl Medications Administered Current Inpatient Medications Acetaminophen (Acetaminophen 325 Mg Tab) 650 mg PO Q4H PRN PRN Reason: Pain or Fever Stop: 05/06/22 01:10 Last Admin: 04/07/22 11:48 Dose: 650 mg Documented by: Dextrose (Dextrose 50% 50 Ml Syringe) 25 - 50 ml IV UD PRN; Protocol PRN Reason: Hypoglycemia Protocol Stop: 05/06/22 02:46 Fenofibrate (Fenofibrate Nanocrystallized 145 Mg Tablet) 145 mg PO QAM [facility] Stop: 05/06/22 08:59 Last Admin: 04/07/22 07:49 Dose: 145 mg Documented by: Fluticasone Propionate (Fluticasone Propionate Na Spr 16 Gm Btl) 1 sprays NA DAILY PRN PRN Reason: allergies Stop: 05/06/22 01:10 Glucagon (Glucagon For Inj 1 Mg Vial) 1 mg SQ UD PRN; Protocol PRN Reason: Hypoglycemia Protocol Stop: 05/06/22 02:46 Glucose (Glucose 10 Tabs/Tube) 4 - 8 tabs PO UD PRN; Protocol PRN Reason: Hypoglycemia Protocol Stop: 05/06/22 02:46 Glucose (Glucose 40% Gel 15 Gm Tube) 15 - 30 gm PO UD PRN; Protocol PRN Reason: Hypoglycemia Protocol Stop: 05/06/22 02:46 Lactated Ringer's (Lr) 1,000 mls @ 200 mls/hr IV .Q5H [facility] Stop: 05/06/22 03:59 Last Admin: 04/07/22 15:21 Dose: 200 mls/hr Documented by: Promethazine HCl 12.5 mg/ (Sodium Chloride) 50.5 mls @ 202 mls/hr IV Q6H PRN PRN Reason: Nausea And Vomiting Stop: 05/06/22 01:10 Last Infusion: 04/06/22 22:29 Dose: Infused Documented by: Insulin Aspart (Insulin Aspart Per Unit) 0 units SC ACHS [facility] Stop: 05/07/22 11:29 Last Admin: 04/07/22 11:34 Dose: 2 units Documented by: Insulin Glargine (Lantus Per Unit Charge) 5 units SQ HS [facility] Stop: 05/06/22 01:10 Last Admin: 04/06/22 20:40 Dose: 5 units Documented by: Lisinopril (Lisinopril 20 Mg Tab) 20 mg PO QAM [facility] Stop: 05/06/22 08:59 Last Admin: 04/07/22 07:48 Dose: 20 mg Documented by: Melatonin (Melatonin 3 Mg Tab) 4.5 mg PO HS [facility] Stop: 05/06/22 20:59 Last Admin: 04/06/22 20:45 Dose: 4.5 mg Documented by: Miscellaneous (Molnupiravir [Lagevrio]: Order Awaiting Action) 1 ea N/A QS [facility] Stop: 05/06/22 07:59 Last Admin: 04/07/22 15:28 Dose: Not Given Documented by: Miscellaneous (Carbohydrates For Hypoglycemia ) 15 - 30 gm PO UD PRN PRN Reason: Hypoglycemia Protocol Stop: 05/06/22 02:46 Morphine Sulfate (Morphine Sulfate 4 Mg/Ml 1 Ml Carp\Vial) 4 mg IV Q4H PRN PRN Reason: Pain Stop: 04/20/22 01:10 Last Admin: 04/07/22 02:25 Dose: 4 mg Documented by: Oxycodone HCl (Oxycodone Hcl Ir 5 Mg Tab (Immediate Release)) 5 - 10 mg PO QID PRN PRN Reason: Pain Stop: 04/20/22 01:10 Thiamine HCl (Thiamine Hcl 100 Mg Tab) 100 mg PO DAILY [facility] Stop: 05/06/22 08:59 Last Admin: 04/07/22 07:49 Dose: 100 mg Documented by: (1) Acute pancreatitis Acute pancreatitis complication: unspecified Pancreatitis type: unspecified pancreatitis type Qualified Code(s): K85.90 - Acute pancreatitis without necrosis or infection, unspecified
[2022-04-07] MEDS: oxyCODONE HCL IR 5 MG TAB (IMMEDIATE RELEASE) PO PRN ×2 (16:49→22:55)
[2022-04-07] MEDS: WARFARIN SOD 10 MG TAB PO SCH (18:13)
[2022-04-07] MEDS: MELATONIN 3 MG TAB PO SCH (20:45)
[2022-04-07] MEDS: LANTUS PER UNIT CHARGE SQ SCH (21:32)
[2022-04-08] MEDS: LACTATED RINGER'S 1,000 ML IV SCH ×3 (01:48→15:41)
[2022-04-08 07:34] LABS: Basophils # (auto) 0.03 K/uL (0-0.2); Basophils % (auto) 0.3 %; Eosinophils # (auto) 0.15 K/uL (0-0.50); Eosinophils % (auto) 1.3 %; Hematocrit (blood only) 33.2 % (40.1-51.0); Hemoglobin 10.9 g/dl (14.0-18.0); Immature Granulocytes # (auto) 0.11 K/uL (0.00-0.02); Immature Granulocytes % (auto) 0.9 %; Lymphocytes # (auto) 1.63 K/uL (1.2-3.4); Lymphocytes % (auto) 13.6 %; Mean Corpuscular Hemoglobin 29.6 pg (25.0-34.0); Mean Corpuscular Hgb Conc 32.8 g/dL (32.0-36.0); Mean Corpuscular Volume 90.2 fL (80.0-100.0); Mean Platelet Volume 9.5 fL (9.4-12.4); Monocytes # (auto) 1.13 K/uL (0.24-0.82); Monocytes % (auto) 9.4 %; Neutrophils # (auto) 8.91 K/uL (1.4-6.5); Neutrophils % (auto) 74.5 %; Platelet Count 268 K/uL (130-400); RDW Coefficient of Variation 13.6 % (11.5-14.5); RDW Standard Deviation 45.2 fL (36.4-46.3); Red Blood Count 3.68 M/uL (4.63-6.08); White Blood Count 11.96 K/ul (4.8-10.8)
[2022-04-08 07:46] LABS: INR 1.8 (0.9-1.1); Prothrombin Time 18.3 Seconds (9.0-12.0)
[2022-04-08 08:10] LABS: Albumin Globulin Ratio 0.9 (0.9-2); Albumin Level 2.6 gm/dl (3.4-5.0); BUN Creatinine Ratio 11.4 (10-20); Bilirubin,Total 0.9 mg/dl (0.2-1.0); Calcium 7.9 mg/dl (8.5-10.1); Est GFR (African American) 124.9 ml/min; Est GFR (Non-African American) 107.7 ml/min; Globulin 2.9 gm/dl (2.5-4.0); Magnesium 1.9 mg/dl (1.7-2.4); Potassium 3.4 mmol/L (3.5-5.1); Total Protein 5.5 gm/dl (6.0-8.3)
[2022-04-08] MEDS ORDERED: POTASSIUM PHOS 3 MMOL/1 ML INFUSION IV STA (08:23)
[2022-04-08] MEDS ORDERED: POTASSIUM PHOSPHATE 30 MMOL in SODIUM CHLORIDE 0.9% 500 ML IV ONE (08:45)
[2022-04-08] MEDS: lisinopril 20 MG TAB PO SCH (09:25)
[2022-04-08] MEDS: THIAMINE HCL 100 MG TAB PO SCH (09:25)
[2022-04-08] MEDS: FENOFIBRATE NANOCRYSTALLIZED 145 MG TABLET PO SCH (09:25)
[2022-04-08] MEDS: INSULIN ASPART PER UNIT SC SCH ×4 (09:38→21:06)
[2022-04-08] MEDS: ACETAMINOPHEN 325 MG TAB PO PRN ×2 (13:20→20:36)
[2022-04-08] MEDS ORDERED: LOPERAMIDE HCL 2 MG CAP PO PRN (15:03)
--- NOTE | 2022-04-08 16:32 | Hospitalist Progress Note ---
Date of Service April 08, 2022 Assessment & Plan (1) Acute pancreatitis: Plan: Presented with positive SIRS criteria Patient predisposed by hypertriglyceridemia, COVID-19 illness Abdominal pain with nausea has been going on for last 3 days Lipase is minimally elevated CT scan showed acute pancreatitis Status post MRCP without any evidence of gallstones and are common bile duct stone Will start clears orally Having more pain in the lower abdomen-will not advance diet We will monitor labs tomorrow Stool for C. difficile colitis as he is having diarrhea Stool has been negative for C. difficile colitis Abdominal pain is almost gone We will advance diet as tolerated Olivas and will be given Electrolytes have been replaced Recent COVID-19 illness improving on antiviral course (onset of symptoms 03/24/22 as per patient account) COVID-19 precautions (despite negative ER test) as patient still within 3 weeks of onset of symptoms Has significant cough without any shortness of breath Has been saturating normally on room air Full advised to finish the course of antiviral We will get definitive COVID-19 test after 9 PM tonight as per infection control COVID-19 virus test is positive without any symptoms hx saddle PE on Coumadin, INR supratherapeutic CTA did not show any pulmonary embolism We will continue Coumadin INR is 1.9 Hypertension, stable Remains on the lower side at 98/64 Getting cautious amount of intravenous fluid Hyperlipidemia on statin rx Morbid obesity with CECILIO sp surgery on CPAP No acute shortness of breath and/or desaturation DM2 on oral medications, suboptimal control as of recent hemoglobin A1c of 7.08 March 2021 Basal insulin adjusted for n.p.o. status, ISS BG goal 1 10-1 40, update hemoglobin A1c Monitor blood sugars Hypokalemia secondary to diarrhea and home diuretic Rx Replaced We will monitor PRP DVT prophylaxis. Coumadin INR goal between 2 and 3 if no procedural intervention Will restart Coumadin Full code Likely discharge tomorrow Admission and Anticipated Discharge Date Admission Date: April 05, 2022 Subjective 04/06/2022 The patient was seen and examined in medical telemetry unit and in the COVID room He complains to abdominal pain specially with movement with nausea and vomited early this morning Has cough without any respiratory symptoms of shortness of breath and has been saturating normally on room air 04/07/2022 The patient was seen and examined in medical telemetry unit and in the COVID room He complains to have pain in the right lower quadrant and also right lower left lower quadrant He has been having diarrhea Denies any fever and or chills Denies any shortness of breath and her cough 04/08/2022 The patient was seen and examined in medical telemetry unit and in the [facility] room His abdominal pain is much improved but still has diarrhea C. difficile toxin has been negative He has been tolerating liquid diet and will be advanced accordingly Denies any respiratory symptoms Review of Systems Review of Systems: All systems reviewed and are unremarkable except as noted below Physical Exam Physical Exam: Lying on a chair without any acute shortness of breath but has abdominal discomfort Constitutional: well developed, well nourished, + ill appearing and + morbidly obese Eyes: PERRL, conjunctivae normal, anicteric sclerae ENMT: external ear and nose normal, oropharynx normal Respiratory: no respiratory distress Auscultation: + diminished lung sounds; no crackles and no wheezes Cardiovascular: Rate/Rhythm: regular rate and regular rhythm; not tachycardic Heart Sounds: normal S1 and normal S2; no murmur Extremities: + edema (Trace edema bilaterally) Gastrointestinal (Abdomen): Inspection/Auscultation: + abdomen distended and normal bowel sounds Percussion/Palpation: abdomen soft; abdomen nontender Neurologic: Alert, awake and oriented x3 Psychiatric: A+Ox3, euthymic affect Lymphatic: no cervical or axillary lymphadenopathy Results & Data Results & Data ([facility]) Vital Signs (Past 12 Hours) Vital Signs Temp Pulse Pulse Resp BP Pulse Ox 04/08/22 10:25 82 04/08/22 07:29 37.0 C 93 H 20 120/85 94 04/08/22 04:34 37 C 88 18 120/76 92 (1) Acute pancreatitis Acute pancreatitis complication: unspecified Pancreatitis type: unspecified pancreatitis type Qualified Code(s): K85.90 - Acute pancreatitis without necrosis or infection, unspecified
[2022-04-08] MEDS: WARFARIN SOD 10 MG TAB PO SCH (17:05)
[2022-04-08] MEDS: MELATONIN 3 MG TAB PO SCH (20:36)
[2022-04-08] MEDS: LANTUS PER UNIT CHARGE SQ SCH (21:07)
[2022-04-09] MEDS: ACETAMINOPHEN 325 MG TAB PO PRN (00:27)
[2022-04-09 06:38] LABS: INR 2.3 (0.9-1.1); Prothrombin Time 23.8 Seconds (9.0-12.0)
[2022-04-09 06:56] LABS: BUN Creatinine Ratio 10.8 (10-20); C Reactive Protein 15.32 mg/dl (0-0.5); Calcium 8.3 mg/dl (8.5-10.1); Creatinine Clr Calc Pharmacy 167.7 ml/min; Est GFR (African American) 122.1 ml/min; Est GFR (Non-African American) 105.3 ml/min; Magnesium 1.9 mg/dl (1.7-2.4); Phosphorus 3.1 mg/dl (2.5-4.9); Potassium 3.3 mmol/L (3.5-5.1)
[2022-04-09 07:13] LABS: Basophils # (auto) 0.04 K/uL (0-0.2); Basophils % (auto) 0.3 %; Eosinophils # (auto) 0.15 K/uL (0-0.50); Eosinophils % (auto) 1.2 %; Hematocrit (blood only) 34.9 % (40.1-51.0); Hemoglobin 11.3 g/dl (14.0-18.0); Immature Granulocytes % (auto) 0.8 %; Lymphocytes # (auto) 2.02 K/uL (1.2-3.4); Lymphocytes % (auto) 16.8 %; Mean Corpuscular Hemoglobin 29.5 pg (25.0-34.0); Mean Corpuscular Hgb Conc 32.4 g/dL (32.0-36.0); Mean Corpuscular Volume 91.1 fL (80.0-100.0); Mean Platelet Volume 9.6 fL (9.4-12.4); Monocytes # (auto) 1.16 K/uL (0.24-0.82); Monocytes % (auto) 9.7 %; Neutrophils # (auto) 8.54 K/uL (1.4-6.5); Neutrophils % (auto) 71.2 %; Platelet Count 326 K/uL (130-400); RDW Coefficient of Variation 13.8 % (11.5-14.5); RDW Standard Deviation 46.4 fL (36.4-46.3); Red Blood Count 3.83 M/uL (4.63-6.08); White Blood Count 12.01 K/ul (4.8-10.8)
[2022-04-09] MEDS ORDERED: POTASSIUM CHLORIDE CRTAB 20 MEQ TABCR PO STA (07:55)
[2022-04-09] MEDS: INSULIN ASPART PER UNIT SC SCH ×2 (08:20→12:05)
[2022-04-09] MEDS: lisinopril 20 MG TAB PO SCH (08:31)
[2022-04-09] MEDS: THIAMINE HCL 100 MG TAB PO SCH (08:31)
[2022-04-09] MEDS: FENOFIBRATE NANOCRYSTALLIZED 145 MG TABLET PO SCH (08:31)
--- NOTE | 2022-04-09 12:50 | Hospitalist Progress Note ---
Date of Service April 09, 2022 Assessment & Plan (1) Acute pancreatitis: Plan: Presented with positive SIRS criteria Patient predisposed by hypertriglyceridemia, COVID-19 illness Abdominal pain with nausea has been going on for last 3 days Lipase is minimally elevated CT scan showed acute pancreatitis Status post MRCP without any evidence of gallstones and are common bile duct stone Will start clears orally Having more pain in the lower abdomen-will not advance diet We will monitor labs tomorrow Stool for C. difficile colitis as he is having diarrhea Stool has been negative for C. difficile colitis Abdominal pain is almost gone Has been tolerating regular diet Diarrhea is controlled and no evidence of C. difficile colitis Has been ambulating in the room without any symptoms Recent COVID-19 illness improving on antiviral course (onset of symptoms 03/24/22 as per patient account) COVID-19 precautions (despite negative ER test) as patient still within 3 weeks of onset of symptoms Has significant cough without any shortness of breath Has been saturating normally on room air Full advised to finish the course of antiviral We will get definitive COVID-19 test after 9 PM tonight as per infection control COVID-19 virus test is positive without any symptoms Initial COVID diagnosis was on 04/01/2022 and repeat diagnosis positive on 04/06/2022 Denies any respiratory symptoms but the CRP remains elevated likely secondary to recent acute pancreatitis and COVID-related He will be discharged home this afternoon Will be quadrant timed 14 days from second of this month 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 status, ISS BG goal 1 10-1 40, update hemoglobin A1c Monitor blood sugars Hypokalemia secondary to diarrhea and home diuretic Rx Replaced We will monitor PRP DVT prophylaxis. Coumadin INR goal between 2 and 3 if no procedural intervention Will restart Coumadin Full code Will be discharged today Admission and Anticipated Discharge Date Admission Date: April 05, 2022 Subjective 04/06/2022 The patient was seen and examined in medical telemetry unit and in the COVID room He complains to abdominal pain specially with movement with nausea and vomited early this morning Has cough without any respiratory symptoms of shortness of breath and has been saturating normally on room air 04/07/2022 The patient was seen and examined in medical telemetry unit and in the COVID room He complains to have pain in the right lower quadrant and also right lower left lower quadrant He has been having diarrhea Denies any fever and or chills Denies any shortness of breath and her cough 04/08/2022 The patient was seen and examined in medical telemetry unit and in the COVID room His abdominal pain is much improved but still has diarrhea C. difficile toxin has been negative He has been tolerating liquid diet and will be advanced accordingly Denies any respiratory symptoms 04/09/2022 The patient was seen and examined in medical telemetry unit and in the COVID room He denies any more abdominal pain and has been moving bowels regularly No fever and or chills, no shortness of breath and/or palpitation Has been saturating normally on room air Review of Systems Review of Systems: All systems reviewed and are unremarkable except as noted below Respiratory: No respiratory symptoms Gastrointestinal: Abdominal pain is controlled and there is no diarrhea Physical Exam Physical Exam: Sitting on a chair without any acute distress Constitutional: well developed, well nourished and + morbidly obese; not ill appearing Eyes: PERRL, conjunctivae normal, anicteric sclerae ENMT: external ear and nose normal, oropharynx normal Respiratory: no respiratory distress Auscultation: + diminished lung sounds; no crackles and no wheezes Cardiovascular: Rate/Rhythm: regular rate and regular rhythm; not tachycardic Heart Sounds: normal S1 and normal S2; no murmur Extremities: + edema (Trace edema bilaterally) Gastrointestinal (Abdomen): Inspection/Auscultation: + abdomen distended and normal bowel sounds Percussion/Palpation: abdomen soft; abdomen nontender Musculoskeletal: No acute arthritis involving any joint Neurologic: Alert, awake and oriented x3. No focal sensory and/or motor deficit appreciated Psychiatric: A+Ox3, euthymic affect Lymphatic: no cervical or axillary lymphadenopathy Results & Data Results & Data ([facility]) Vital Signs (Past 12 Hours) Vital Signs Temp Pulse Pulse Resp BP Pulse Ox 04/09/22 07:05 70 04/09/22 03:15 36.8 C 78 20 126/84 99 04/09/22 01:45 80 Laboratory Results Short CBC 04/09/22 Range/Units 06:10 WBC 12.01 H (4.8-10.8) K/ul Hgb 11.3 L (14.0-18.0) g/dl Hct 34.9 L (40.1-51.0) % Plt Count 326 (130-400) K/uL BMP 04/09/22 06:10 Sodium 135 L Potassium 3.3 L Chloride 103 Carbon Dioxide 27 BUN 8 Creatinine 0.74 Glucose 157 H Calcium 8.3 L Medications Administered Current Inpatient Medications Acetaminophen (Acetaminophen 325 Mg Tab) 650 mg PO Q4H PRN PRN Reason: Pain or Fever Stop: 05/06/22 01:10 Last Admin: 04/09/22 00:27 Dose: 650 mg Documented by: Dextrose (Dextrose 50% 50 Ml Syringe) 25 - 50 ml IV UD PRN; Protocol PRN Reason: Hypoglycemia Protocol Stop: 05/06/22 02:46 Fenofibrate (Fenofibrate Nanocrystallized 145 Mg Tablet) 145 mg PO QAM [facility] Stop: 05/06/22 08:59 Last Admin: 04/09/22 08:31 Dose: 145 mg Documented by: Fluticasone Propionate (Fluticasone Propionate Na Spr 16 Gm Btl) 1 sprays NA DAILY PRN PRN Reason: allergies Stop: 05/06/22 01:10 Glucagon (Glucagon For Inj 1 Mg Vial) 1 mg SQ UD PRN; Protocol PRN Reason: Hypoglycemia Protocol Stop: 05/06/22 02:46 Glucose (Glucose 10 Tabs/Tube) 4 - 8 tabs PO UD PRN; Protocol PRN Reason: Hypoglycemia Protocol Stop: 05/06/22 02:46 Glucose (Glucose 40% Gel 15 Gm Tube) 15 - 30 gm PO UD PRN; Protocol PRN Reason: Hypoglycemia Protocol Stop: 05/06/22 02:46 Promethazine HCl 12.5 mg/ (Sodium Chloride) 50.5 mls @ 202 mls/hr IV Q6H PRN PRN Reason: Nausea And Vomiting Stop: 05/06/22 01:10 Last Infusion: 04/06/22 22:29 Dose: Infused Documented by: Insulin Aspart (Insulin Aspart Per Unit) 0 units SC ACHS [facility] Stop: 05/07/22 11:29 Last Admin: 04/09/22 12:05 Dose: 3 units Documented by: Insulin Glargine (Lantus Per Unit Charge) 5 units SQ HS [facility] Stop: 05/06/22 01:10 Last Admin: 04/08/22 21:07 Dose: 5 units Documented by: Lisinopril (Lisinopril 20 Mg Tab) 20 mg PO QAM [facility] Stop: 05/06/22 08:59 Last Admin: 04/09/22 08:31 Dose: 20 mg Documented by: Loperamide HCl (Loperamide Hcl 2 Mg Cap) 2 mg PO Q3H PRN PRN Reason: Diarrhea Stop: 05/08/22 15:02 Last Admin: 04/08/22 17:05 Dose: 2 mg Documented by: Melatonin (Melatonin 3 Mg Tab) 4.5 mg PO HS [facility] Stop: 05/06/22 20:59 Last Admin: 04/08/22 20:36 Dose: 4.5 mg Documented by: Miscellaneous (Molnupiravir [Lagevrio]: Order Awaiting Action) 1 ea N/A QS [facility] Stop: 05/06/22 07:59 Last Admin: 04/09/22 08:32 Dose: Not Given Documented by: Miscellaneous (Carbohydrates For Hypoglycemia ) 15 - 30 gm PO UD PRN PRN Reason: Hypoglycemia Protocol Stop: 05/06/22 02:46 Morphine Sulfate (Morphine Sulfate 4 Mg/Ml 1 Ml Carp\Vial) 4 mg IV Q4H PRN PRN Reason: Pain Stop: 04/20/22 01:10 Last Admin: 04/07/22 02:25 Dose: 4 mg Documented by: Oxycodone HCl (Oxycodone Hcl Ir 5 Mg Tab (Immediate Release)) 5 - 10 mg PO QID PRN PRN Reason: Pain Stop: 04/20/22 01:10 Last Admin: 04/07/22 22:55 Dose: 5 mg Documented by: Thiamine HCl (Thiamine Hcl 100 Mg Tab) 100 mg PO DAILY [facility] Stop: 05/06/22 08:59 Last Admin: 04/09/22 08:31 Dose: 100 mg Documented by: Warfarin Sodium (Warfarin Sod 10 Mg Tab) 10 mg PO SuMoWeThFrSa@1600 [facility] Stop: 05/07/22 16:59 Last Admin: 04/08/22 17:05 Dose: 10 mg Documented by: Warfarin Sodium (Warfarin Sod 5 Mg Tab) 5 mg PO Tu@1600 [facility] Stop: 05/11/22 15:59 (1) Acute pancreatitis Acute pancreatitis complication: unspecified Pancreatitis type: unspecified pancreatitis type Qualified Code(s): K85.90 - Acute pancreatitis without necrosis or infection, unspecified
--- NOTE | 2022-04-09 16:06 | Discharge Summary ---
Date of Service April 09, 2022 Admission HPI Per Admitting Provider History obtained from patient and records. Medical history significant for saddle PE on Coumadin, hypertension, hyperlipidemia, BPH, migraine, CECILIO sp surgery on CPAP, GERD, DM2 on oral medications. Last confinement 2017 for saddle PE with RV strain and new diagnosis of DM2. [place] [facility]. Subsequently transition to Coumadin. Patient was on vacation with his family in [place] when he noted cough symptoms about 2 weeks ago (03/24/22), some improvement with OTC meds. Not sure about COVID-19 contacts. No COVID 19 testing done in [place]. Patient received COVID-19 vaccination. Last week upon return to [place], patient tested positive on his home COVID-19 kit. Patient prescribed Molnuripivir course. Achy central abdominal pain with nausea symptoms and constipation followed by loose stools nonbloody after laxative intake even before first dose of antiviral. No fever, no chills, no chest pain, no shortness of breath. Some nausea, no emesis. Patient consulted ER for worsening symptoms. MEDICAL HISTORY: As above. 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 Admission Exam Per Admitting Provider Physical Exam: GENERAL: Comfortable, pleasant morbidly obese, no respiratory distress SKIN: Normal color, warm HEENT: [place] palpebral conjunctivae, no ptosis, dry buccal mucosa NECK : Supple, neck, no tenderness CHEST : CTA, no tenderness HEART : Tachycardic, no obvious murmurs ABDOMEN: Some distention, central abdominal tenderness EXTREMITIES : Minimal LE swelling, no LE tenderness, no other conspicuous deformities noted NEUROLOGIC : Coherent, no facial asymmetry, no other gross focality Principal Diagnosis Acute pancreatitis COVID-19 virus infection, history of pulmonary embolism, sleep apnea on CPAP Discharge Exam Sitting on a chair without any acute distress Constitutional well developed, well nourished and + morbidly obese; not ill appearing Eyes PERRL, conjunctivae normal, anicteric sclerae ENMT external ear and nose normal, oropharynx normal Respiratory no respiratory distress Auscultation: + diminished lung sounds; no crackles and no wheezes Cardiovascular Rate/Rhythm: regular rate and regular rhythm; not tachycardic Heart Sounds: normal S1 and normal S2; no murmur Extremities: + edema (Trace edema bilaterally) Gastrointestinal (Abdomen) Inspection/Auscultation: + abdomen distended and normal bowel sounds Percussion/Palpation: abdomen soft; abdomen nontender Psychiatric A+Ox3, euthymic affect Lymphatic no cervical or axillary lymphadenopathy Discharge Data Allergies Allergy/AdvReac Type Severity Reaction Status Date / Time Penicillins Allergy Mild Unknown Unverified 04/05/22 21:21 Consultations 04/05/22 20:45 ED Decision to Admit Stat 04/06/22 01:11 Consult Gastroenterology Routine Ordered Studies 04/05/22 18:03 CT abd pelvis IV con only Stat 04/05/22 18:04 CT angio chest PE protocol Stat 04/05/22 21:46 US gallbladder Urgent 04/06/22 07:35 MR MRCP Stat Hospital Course (1) Acute pancreatitis: Presented with positive SIRS criteria Patient predisposed by hypertriglyceridemia, COVID-19 illness Abdominal pain with nausea has been going on for last 3 days Lipase is minimally elevated CT scan showed acute pancreatitis Status post MRCP without any evidence of gallstones and are common bile duct stone Will start clears orally Having more pain in the lower abdomen-will not advance diet We will monitor labs tomorrow Stool for C. difficile colitis as he is having diarrhea Stool has been negative for C. difficile colitis Abdominal pain is almost gone Has been tolerating regular diet Diarrhea is controlled and no evidence of C. difficile colitis Has been ambulating in the room without any symptoms Recent COVID-19 illness improving on antiviral course (onset of symptoms 03/24/22 as per patient account) COVID-19 precautions (despite negative ER test) as patient still within 3 weeks of onset of symptoms Has significant cough without any shortness of breath Has been saturating normally on room air Full advised to finish the course of antiviral We will get definitive COVID-19 test after 9 PM tonight as per infection control COVID-19 virus test is positive without any symptoms Initial COVID diagnosis was on 04/01/2022 and repeat diagnosis positive on 04/06/2022 Denies any respiratory symptoms but the CRP remains elevated likely secondary to recent acute pancreatitis and COVID-related He will be discharged home this afternoon Will be quadrant timed 14 days from second of this month 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 status, ISS BG goal 1 10-1 40, update hemoglobin A1c Monitor blood sugars Hypokalemia secondary to diarrhea and home diuretic Rx Replaced We will monitor PRP DVT prophylaxis. Coumadin INR goal between 2 and 3 if no procedural intervention Will restart Coumadin Full code Will be discharged today Total Time Total Time Spent Total Time Spent (In Minutes): 35 minutes Discharge Plan Discharge Items Patient Disposition: Home - Self-Care Reason For Visit: PANCREATITIS, TACHY, COVID Discharge Diagnosis: Acute pancreatitis COVID-19 virus infection, history of pulmonary embolism, sleep apnea on CPAP Condition on Discharge: Good Activity: Resume your previous activity Non-emergency contact: Primary Care Provider Call non-emergency contact if: you have any medication questions and your symptoms worsen Follow-up/Referrals: Iain Barrientos MD [Primary Care Provider] - (Your doctor's office will call you on Sunday with an appointment within 7 days) Diet: Carb Consistent or DM2 Addtl Attending Provider Instructions: Please take precautions to avoid fall No change in your medications Maintain home isolation for COVID-19 virus infection until 04/15/2022 as per guidelines below Please give appointment with your healthcare providers Keep appointment with coagulation clinic Home Isolation COVID-19 Instructions The following information about Home Isolation is from the CDC Website: https://www.cdc.gov/coronavirus/2019-ncov/hcp/hgmnrlfa-hqvyslu-wwlarf.html Stay home except to get medical care People who are mildly ill with COVID-19 are able to isolate at home during their illness. You should restrict activities outside your home, except for getting medical care. Do not go to work, school, or public areas. Avoid using public transportation, ride-sharing, or taxis. Separate yourself from other people and animals in your home People: As much as possible, you should stay in a specific room and away from other people in your home. Also, you should use a separate bathroom, if available. Animals: You should restrict contact with pets and other animals while you are sick with COVID-19, just like you would around other people. Although there have not been reports of pets or other animals becoming sick with COVID-19, it is still recommended that people sick with COVID-19 limit contact with animals until more information is known about the virus. When possible, have another member of your household care for your animals while you are sick. If you are sick with COVID-19, avoid contact with your pet, including petting, snuggling, being kissed or licked, and sharing food. If you must care for your pet or be around animals while you are sick, wash your hands before and after you interact with pets and wear a face mask. Call ahead before visiting your doctor If you have a medical appointment, call the healthcare provider and tell them that you have or may have COVID-19. This will help the healthcare providers office take steps to keep other people from getting infected or exposed. Wear a face mask You should wear a face mask when you are around other people (e.g., sharing a room or vehicle) or pets and before you enter a healthcare providers office. If you are not able to wear a face mask (for example, because it causes trouble breathing), then people who live with you should not stay in the same room with you, or they should wear a face mask if they enter your room. Cover your coughs and sneezes Cover your mouth and nose with a tissue when you cough or sneeze. Throw used tissues in a lined trash can. Immediately wash your hands with soap and water for at least 20 seconds or, if soap and water are not available, clean your hands with an alcohol-based hand railway signal operator that contains at least 60% alcohol. Clean your hands often Wash your hands often with soap and water for at least 20 seconds, especially after blowing your nose, coughing, or sneezing; going to the bathroom; and before eating or preparing food. If soap and water are not readily available, use an alcohol-based hand railway signal operator with at least 60% alcohol, covering all surfaces of your hands and rubbing them together until they feel dry. Soap and water are the best option if hands are visibly dirty. Avoid touching your eyes, nose, and mouth with unwashed hands. Avoid sharing personal household items You should not share dishes, drinking glasses, cups, eating utensils, towels, or bedding with other people or pets in your home. After using these items, they should be washed thoroughly with soap and water. Clean all high-touch surfaces everyday High touch surfaces include counters, tabletops, doorknobs, bathroom fixtures, toilets, phones, keyboards, tablets, and bedside tables. Also, clean any surfaces that may have blood, stool, or body fluids on them. Use a household cleaning spray or wipe, according to the label instructions. Labels contain instructions for safe and effective use of the cleaning product including precautions you should take when applying the product, such as wearing gloves and making sure you have good ventilation during use of the product. Monitor your symptoms Seek prompt medical attention if your illness is worsening (e.g., difficulty breathing).Beforeseeking care, call your healthcare provider and tell them that you have, or are being evaluated for, COVID-19. Put on a face mask before you enter the facility. These steps will help the healthcare providers office to keep other people in the office or waiting room from getting infected or exposed. Ask your healthcare provider to call the local or state health department. Persons who are placed under active monitoring or facilitated self- monitoring should follow instructions provided by their local health department or occupational health professionals, as appropriate. When working with your local health department check their available hours. If you have a medical emergency and need to call 911, notify the dispatch personnel that you have, or are being evaluated for COVID-19. If possible, put on a face mask before emergency medical services arrive. Discontinuing home isolation Patients with confirmed COVID-19 should remain under home isolation precautions until the risk of secondary transmission to others is thought to be low. The decision to discontinue home isolation precautions should be made on a [id number] basis, in consultation with healthcare providers and state and local health departments. Pending Studies at Discharge: No Stand-Alone Forms: My [employer], Smoking Cessation Medications and DC Order Prescriptions: Continued warfarin 5 mg tablet 5 mg PO TU RF: 0 thiamine HCl (vitamin B1) 100 mg tablet 100 mg PO DAILY RF: 0 atorvastatin 40 mg tablet 40 mg PO DAILY RF: 0 metformin 500 mg tablet 1,000 mg PO BID RF: 0 lisinopril-hydrochlorothiazide 20-25 mg tablet 1 tab PO DAILY RF: 0 fluticasone propionate [Flonase Allergy Relief] 50 mcg/actuation spray,suspension 1 spray INTRANASAL DAILY PRN (Reason: allergies) RF: 0 warfarin 5 mg tablet 10 mg PO SUMOWETHFRSA RF: 0 melatonin 5 mg Tablet,Chewable 5 mg PO HS RF: 0 metoprolol succinate 50 mg tablet extended release 24 hr 50 mg PO DAILY RF: 0 fenofibrate micronized 134 mg capsule 134 mg PO QAM RF: 0 molnupiravir 200 mg capsule 800 mg PO BID RF: 0 Discharge Orders: Discharge Order (Routine); Ordered 04/09/22 Ordered By: Laura John/Other Patient Handouts: Understanding Pancreatitis Admission Data Admit Date/Time: 04/05/22 21:50 Attending Provider: Laura Gibbs Admit Provider: Dragan Acosta Primary Care Provider: Iain Barrientos Other Providers: Dragan Acosta ; Mariah Elizondo ; Magaly Rao ; Jana Ashley ; Althea Pierson ; Jah Merrill ; Kae Tadeo ; Keily Hernandez ; Carmelo Gipson ; Rosa Finn ; Candace Garcia ; Dianne Saleh ; Siria Loera ; Thuy Weston Other Interventions: Discharge Summary Assessment (RN) Last Done: 04/09/22 14:24
[2022-04-11] MEDS ORDERED: WARFARIN SOD 5 MG TAB PO SCH (16:00)
== END 2022-04-09 15:02 | disposition home or self-care (01) | DRG 438 ==
LOC: ED 17:45 → 2N 21:50 → SUATTDRO 21:50 → 2N 04-06 00:23